=== PATIENT | female | born 1950 | race Two or more races ===

== ENCOUNTER 2016-11-12 05:51 | Inpatient (IN) | payer MEDICARE, OTHER ==
--- NOTE | 2016-11-10 16:17 | History and Physical Report ---
DATE OF ADMISSION: 11/12/2016 REASON FOR ADMISSION: Right colon adenocarcinoma, here to undergo right colectomy. HISTORY OF PRESENT ILLNESS: The patient is a very pleasant, 6 para 6, 66-year-old diabetic obese woman, with a history of arthritis, with a newly diagnosed ascending colon infiltrating adenocarcinoma. She has had some obstipation and constipation symptoms, no bleeding, and some mild intermittent abdominal pain and for that reason, underwent a colonoscopy and at that time it was found that she had an infiltrating adenocarcinoma of the ascending colon near the hepatic flexure, evidently the cecum was also seen and there was no obvious mass. The mass was sizeable. A CAT scan of the abdomen was done, which revealed normal findings except for some fatty liver changes, and the rest of the CT was normal except for evidence of a prior cholecystectomy. PAST MEDICAL HISTORY: No history of heart disease, ejection fraction is 55% on the 2D echo, no valve abnormalities, history of diabetes mellitus, history of arthritis, status post open cholecystectomy many years ago, history of appendectomy, history of hysterectomy, history of arthroscopy, history of colonoscopy. MEDICATIONS: Calcium carbonate 500 mg 1 p.o. b.i.d., vitamin D 50,000 units capsule once a week, multivitamins 1 a day, ibuprofen 1 p.o. t.i.d. p.r.n. joint pain, meloxicam 15 mg 1 p.o. daily, Anoro Ellipta 62.5 mcg and 25 mcg powder for inhalation once a day, and omeprazole 1 capsule p.o. daily. PHYSICAL EXAMINATION: VITAL SIGNS: Blood pressure was 130/70, pulse 76, temperature is 98.1 degrees, respirations 18, weight 181 pounds, height 63 inches, and BMI 32. HEENT: Pupils are equal, round, reactive to light and accommodation. Extraocular movements are intact. The mouth and throat are clear. NECK: Supple. No masses. Breasts: no masses, no adenopathy. LUNGS: Clear to auscultation. HEART: Rhythmic and regular. No murmurs. ABDOMEN: Soft and flat. Bowel sounds are normoactive. No tenderness, no rebound, no organomegaly, right upper quadrant oblique subcostal scar, no groin adenopathy or hernia. GENITALIA: Normal external female genitalia. Pelvic is deferred. RECTAL: Normal tone. No masses. Heme-negative stool. EXTREMITIES: Good range of motion, some arthritic changes, no deformity. Walks with some difficulty with a cane. LABORATORY VALUES: CBC and electrolytes are normal. Liver function tests are normal. Electrocardiogram is pending and a chest x-ray is pending. CAT scan reviewed with Dr. Whitman: no liver mets or adenopathy, ascending colon- hepatic flexure area slight narrowing with thickened colon wall, possible "apple core "lesion. Some mass effect in cecal region, but could be stool.([id number] went to cecum. ) PLAN: The patient is being admitted on 11/12/2016 to undergo a laparoscopic right colectomy, possible open. The patient understands that given her past surgeries there may be significant adhesions making a laparoscopic right colectomy more difficult or impossible, therefore she might require an open right hemicolectomy. The patient understands the indications, the risks, the benefits, the possible complications, possible infection, possible leak, possible abnormal bleeding, and she consents to the operation. All this was discussed at length with patient and daughter at [facility] and all questions, concerns were addressed and understood by patient and daughter. GI prep is in progress. Corey Harris M.D. : KENNY/at JOB#: [id number] CC: IGNACIO
[2016-11-12] VITALS (26 sets, daily range): BP systolic 109–159; BP diastolic 63–91
[~2016-11-12] VITALS: Ht 152.4 cm; Wt 81.6 kg
[~2016-11-12 05:51] MED LIST: ASPIR 8181 MG ORAL; BACLOFEN10 MG ORAL; GLIPIZIDE5 MG ORAL; HYDRALAZINE HCL25 M1 ORAL; LASIX20 M1 ORAL; METFORMIN HCL1000 M1 ORAL; OXYBUTYNIN CHLO10 MG PO; TRAMADOL HCL50 MG ORAL
--- NOTE | 2016-11-12 07:05 | Pre-Procedure Note/Attestation ---
Pre-Procedure Note/Attestation Complete Prior to Procedure Planned Procedure: right Procedure Narrative: laparoscopic right colectomy, possible open Indications for Procedure Pre-Operative Diagnosis: right colon carcinoma Attestation I attest that I discussed the nature of the procedure; its benefits; risks and complications; and alternatives (and the risks and benefits of such alternatives ), prior to the procedure, with the patient (or the patient's legal sales utility representative). I attest that, if there was a reasonable possibility of needing a blood transfusion, the patient (or the patient's legal sales utility representative) was given the [facility] standardized written summary, pursuant to the Subhash Nessa Blood Safety Act ([place] Health and Safety Code # 1645, as amended). I attest that I re-evaluated the patient just prior to the surgery and that there has been no change in the patient's H&P, except as documented below: ALEK WORTHY Nov 12, 2016 07:05
--- NOTE | 2016-11-12 07:06 | Anethesia Preoperative Eval ---
Anesthesia Pre-op PMH/ROS General Date of Evaluation: Nov 12, 2016 Anesthesiologist: Jose ASA Score: ASA 3 Mallampati Score Class I : Soft palate, uvula, fauces, pillars visible Class II: Soft palate, uvula, fauces visible Class III: Soft palate, base of uvula visible Class IV: Only hard plate visible Mallampati Classification: Class II Surgeon: Steven Diagnosis: Colorectal Cancer Surgical Procedure: Right laparoscopic colectomy Anesthesia History: none Family History: no anesthesia problems Allergies: Coded Allergies: No Known Allergies (Unverified , 11/11/16) Medications: see eMAR Past Medical History Cardiovascular: Denies: CAD, HTN, [place], arrhythmia, other, valve dz Pulmonary: Denies: COPD, SWEETIE, asthma, other Gastrointestinal/Genitourinary: Reports: GERD, other - colon cancer, Denies: CRI, ESRD Neurologic/Psychiatric: Denies: CVA, TIA, dementia, depression/anxiety, other Endocrine: Reports: DM, Denies: hypothyroidism, other, steroids HEENT: Denies: GAMBELL (L), GAMBELL (R), cataract (L), cataract (R), glaucoma, other Musculoskeletal/Integumentary: Reports: OA Other: obesity PSxH Narrative: open cholecystectomy, NENO/BSO, Bilateral knee arthroscopies Anesthesia Pre-op Phys. Exam Physician Exam Last Vital Signs Date Time Temp Pulse Resp B/P Pulse Ox O2 Delivery O2 Flow Rate FiO2 11/12/16 06:53 97.5 60 20 121/73 96 Room Air Constitutional: NAD Cardiovascular: RRR Respiratory: CTA Airway Exam Mallampati Score: Class II MO: limited ROM: limited Teeth: missing Dentures: lower, upper Anesthesia Pre-op A/P Labs see chart Studies Pre-op Studies: EKG - sr Risk Assessment & Plan Assessment: ASA III Plan: GA Status Change Before Surgery: No Pre-Antibiotics Drug: Ancef 2g Given Within 1 Hr of Incision: Yes Time Given: 07:45 REMA BROUSSARD M.D. Nov 12, 2016 07:06
[2016-11-12] MEDS ORDERED: Bupivacaine w/Epi 0.25% 30ml Vial INJ ONE ×2 (07:20→09:22)
[2016-11-12] MEDS ORDERED: LR 1000ml ONE (07:30)
[2016-11-12] MEDS ORDERED: Dexamethasone 4mg/ml vial ONE (07:30)
[2016-11-12] MEDS ORDERED: Lidocaine 1% MPF 10mg/ml 5ml ONE (07:30)
[2016-11-12] MEDS ORDERED: Propofol 10mg/ml 20ml IV ONE (07:30)
[2016-11-12] MEDS ORDERED: Sterile Water Irrig 1000ml IRRIG ONE (07:30)
[2016-11-12] MEDS ORDERED: Midazolam 2mg/2ml Inj ONE (07:30)
[2016-11-12] MEDS ORDERED: Zemuron 50mg/5ml Inj IV ONE (07:30)
[2016-11-12] MEDS ORDERED: fentaNYL 250mcg/5ml ONE (07:30)
[2016-11-12] MEDS ORDERED: NS Irrig 1000ml ONE (07:30)
[2016-11-12] MEDS ORDERED: LR 1000ml 1,000 ML IVLG SCH (07:57)
[2016-11-12] MEDS ORDERED: fentaNYL 100 mcg/2 mL IV PRN (08:00)
[2016-11-12] MEDS ORDERED: Metoclopramide 10mg/2ml Inj IVP PRN (08:00)
[2016-11-12] MEDS ORDERED: Ketorolac 30mg Inj IV PRN (08:00)
[2016-11-12] MEDS ORDERED: DiphenhydrAMINE 50mg/ml Inj IVP PRN (08:00)
--- NOTE | 2016-11-12 12:40 | Brief Operative Note ---
Immediate Post Operative Note Operative Note Pre-op Diagnosis: right colon carcinoma Procedure: laparoscopic right hemicolectomy Post-op Diagnosis: same as pre-op Surgeon: howard Anesthesiologist: claribel Anesthesia: general Specimen: yes - right colon Complications: none Condition: stable Estimated Blood Loss: volume - 250-300 cc Drains: none Implant(s) used?: No ALEK WORTHY Nov 12, 2016 12:40
--- NOTE | 2016-11-12 12:48 | Immediate Post-Op Evaluation ---
Immediate Post-Op Evalulation Immediate Post-Op Evalulation Procedure: Laparoscopic right colectomy Date of Evaluation: Nov 12, 2016 Time of Evaluation: 12:47 IV Fluids: 3L Blood Products: 0 Estimated Blood Loss: 300 Urinary Output: 150 Blood Pressure Systolic: 158 Blood Pressure Diastolic: 61 Pulse Rate: 109 Respiratory Rate: 16 O2 Sat by Pulse Oximetry: 100 Temperature (Fahrenheit): 97.5 Pain Score (1-10): 0 Nausea: No Vomiting: No Complications 0 Patient Status: awake, reacts, patent, none Hydration Status: adequate Drug: Ancef 2g Given Within 1 Hr of Incision: Yes Time Given: 07:45 REMA BROUSSARD M.D. Nov 12, 2016 12:48
[2016-11-12] MEDS: Hydromorphone 0.5mg/0.5ml inj IVP PRN ×3 (13:03→14:11)
[2016-11-12] MEDS ORDERED: Naloxone 0.4mg/ml Inj IVP PRN (13:15)
[2016-11-12] MEDS ORDERED: Rate Change PCA 1 Each MISC PRN (13:15)
[2016-11-12] MEDS: LORazepam Inj 2mg/ml 1ml IV PRN ×2 (13:32→14:15)
[2016-11-12] MEDS: PCA HYDROmorphone 1mg/ml 30 ML IV PRN (14:24)
[2016-11-12] MEDS: D5 1/2NS w/KCl 20mEq 1,000 ML IV SCH (16:27)
[2016-11-12] MEDS: cefOXitin Sod 1 GM in D5W 55 ML IV SCH ×2 (16:28→20:56)
[2016-11-12] MEDS: NovoLOG Insulin Flexpen SUBQ SCH ×2 (16:52→21:00)
[2016-11-12] MEDS: DiphenhydrAMINE 50mg/ml Inj IVP PRN (17:39)
[2016-11-12] MEDS: PCA shift volume MISC SCH (19:00)
[2016-11-12 20:06] LABS: MEAN CORPUSCULAR HEMOGLOBIN 31.5 PG (27.0-31.0); MEAN CORPUSCULAR HGB CONC 34.5 G/DL (32.0-36.0); MEAN CORPUSCULAR VOLUME 91 FL (80-99); MEAN PLATELET VOLUME 6.4 FL (6.5-10.1); PLATELET COUNT 297 K/UL (150-450); RED BLOOD COUNT 3.18 M/UL (4.20-5.40); RED CELL DISTRIBUTION WIDTH 12.2 % (11.6-14.8)
[2016-11-12 20:09] LABS: WHITE BLOOD COUNT 22.3 K/UL (4.8-10.8)
[2016-11-12 20:36] LABS: ANION GAP 15 (5-15); CALCIUM 8.5 mg/dL (8.6-10.2); CARBON DIOXIDE 24 mEQ/L (20-30); CHLORIDE 99 mEQ/L (98-107); CREATININE 0.9 mg/dL (0.5-0.9); GLOMERULAR FILTRATION RATE > 60 mL/min (>60); HEMOLYSIS 5; POTASSIUM 4.8 mEQ/L (3.4-4.9); SODIUM 138 mEQ/L (135-145)
[2016-11-12 20:51] LABS: ANISOCYTOSIS 1+; BAND NEUTROPHILS % (MANUAL) 5 % (0-8); BASOPHILS % (MANUAL) 0 % (0-2); EOSINOPHILS % (MANUAL) 0 % (0-3); HYPOCHROMASIA 1+; LYMPHOCYTES % (MANUAL) 3 % (20-45); NEUTROPHILS % (MANUAL) 86 % (45-75); PLATELET ESTIMATE ADEQUATE; PLATELET MORPHOLOGY NORMAL; TOTAL CELLS COUNTED 100
[2016-11-12] MEDS: Heparin 5000 units/ml inj SUBQ SCH (22:15)
[2016-11-13] VITALS (7 sets, daily range): BP systolic 95–119; BP diastolic 48–62
[2016-11-13] MEDS: 1/2NS w/KCl 20mEq 1000ml 1,000 ML IV SCH ×2 (02:00→23:00)
[2016-11-13] MEDS: cefOXitin Sod 1 GM in D5W 55 ML IV SCH (02:06)
[2016-11-13] MEDS: D5 1/2NS w/KCl 20mEq 1,000 ML IV SCH (02:06)
[2016-11-13] MEDS: NovoLOG Insulin Flexpen SUBQ SCH ×4 (06:21→21:03)
[2016-11-13] MEDS: Heparin 5000 units/ml inj SUBQ SCH ×3 (06:22→21:08)
[2016-11-13] MEDS: DiphenhydrAMINE 50mg/ml Inj IVP PRN (06:29)
[2016-11-13] MEDS: PCA shift volume MISC SCH ×3 (07:28→22:06)
[2016-11-13 07:35] LABS: BASOPHILS % (AUTO) 0.4 % (0.0-2.0); EOSINOPHILS % (AUTO) 0.1 % (0.0-3.0); LYMPHOCYTES % (AUTO) 19.2 % (20.0-45.0); MEAN CORPUSCULAR HEMOGLOBIN 29.9 PG (27.0-31.0); MEAN CORPUSCULAR HGB CONC 31.8 G/DL (32.0-36.0); MEAN CORPUSCULAR VOLUME 94 FL (80-99); MEAN PLATELET VOLUME 6.5 FL (6.5-10.1); MONOCYTES % (AUTO) 10.4 % (1.0-10.0); NEUTROPHILS % (AUTO) 69.9 % (45.0-75.0); PLATELET COUNT 292 K/UL (150-450); RED BLOOD COUNT 2.95 M/UL (4.20-5.40); RED CELL DISTRIBUTION WIDTH 12.9 % (11.6-14.8); WHITE BLOOD COUNT 17.4 K/UL (4.8-10.8)
[2016-11-13 07:46] LABS: CALCIUM 7.8 mg/dL (8.6-10.2); CREATININE 1.1 mg/dL (0.5-0.9); GLOMERULAR FILTRATION RATE 49.4 mL/min (>60); MAGNESIUM 1.4 mg/dL (1.7-2.5); PHOSPHORUS 3.8 mg/dL (2.5-4.8); POTASSIUM 4.7 mEQ/L (3.4-4.9)
--- NOTE | 2016-11-13 10:27 | General Surgery Progress Note ---
General Surgery-Progress Note Subjective Day of Surgery: POD #1 Additional Comments Patient seen and examined at bedside. doing okay. Complaining of abdominal pain and some mild itching in right arm. no nausea or emesis. no fever or chills. no flatus or BM. otherwise comfortable. Objective Last 24 Hour Vital Signs Date Time Temp Pulse Resp B/P Pulse Ox O2 Delivery O2 Flow Rate FiO2 11/13/16 07:56 99.0 97 19 112/62 99 Room Air 11/13/16 04:13 99.0 58 19 117/48 96 Nasal Cannula 11/13/16 04:00 20 11/13/16 00:32 97.4 110 18 95/55 96 Nasal Cannula 11/13/16 00:00 20 11/12/16 20:56 99.3 145 19 112/76 97 Nasal Cannula 11/12/16 20:00 20 11/12/16 17:34 Nasal Cannula 3.0 32 11/12/16 17:15 97.3 137 17 114/73 97 Nasal Cannula 11/12/16 16:53 97.3 138 18 118/73 97 Nasal Cannula 11/12/16 16:45 97.6 146 16 119/81 97 Nasal Cannula 3.0 11/12/16 16:15 97.5 153 15 109/75 96 Nasal Cannula 3.0 11/12/16 16:00 97.2 146 13 129/85 95 Nasal Cannula 3.0 11/12/16 15:56 20 11/12/16 15:45 97.0 144 14 119/81 95 Nasal Cannula 3.0 11/12/16 15:30 97.0 137 14 141/91 94 Nasal Cannula 3.0 11/12/16 15:30 20 11/12/16 15:23 20 11/12/16 15:15 97.9 113 13 126/85 98 Nasal Cannula 3.0 11/12/16 14:56 20 11/12/16 14:47 97.9 11/12/16 14:46 97.9 11/12/16 14:41 20 11/12/16 14:40 97.9 113 20 126/85 98 Nasal Cannula 3.0 11/12/16 14:29 97.9 117 20 132/82 100 Nasal Cannula 3.0 11/12/16 14:24 20 11/12/16 14:15 104 20 119/63 100 Nasal Cannula 3.0 11/12/16 14:11 120 20 149/72 100 Nasal Cannula 3.0 11/12/16 14:05 104 20 140/77 100 Simple Mask 8.0 11/12/16 13:50 97.5 11/12/16 13:50 104 20 125/69 100 Simple Mask 8.0 11/12/16 13:35 104 20 119/63 100 Simple Mask 8.0 11/12/16 13:32 115 20 140/79 100 Simple Mask 8.0 11/12/16 13:28 115 20 140/79 100 Simple Mask 8.0 11/12/16 13:24 105 20 144/76 100 Simple Mask 8.0 11/12/16 13:10 113 20 136/80 100 Simple Mask 8.0 11/12/16 13:03 114 20 143/81 100 Simple Mask 8.0 11/12/16 13:00 114 20 143/81 100 Simple Mask 8.0 11/12/16 12:52 114 20 131/80 100 Simple Mask 8.0 11/12/16 12:48 109 16 100 11/12/16 12:47 114 20 130/86 100 Simple Mask 8.0 11/12/16 12:42 97.5 114 20 159/74 100 Simple Mask 8.0 I&O Intake and Output 11/12/16 11/13/16 19:00 07:00 Intake Total 4200 ml 1200 ml Output Total 700 ml 250 ml Balance 3500 ml 950 ml Intake IV Total 4200 ml 1200 ml Output Urine Total 400 ml 250 ml Estimated Blood Loss 300 ml # Voids 1 Dressing: dry Wound: clean Drains: none Cardiovascular: RSR Respiratory: clear Abdomen: soft, absent bowel sounds, other - soft, inciscional tenderness, no distention, no bowel sounds, wounds c/d/i. Extremities: edema Laboratory Tests Test 11/12/16 19:30 11/13/16 05:10 White Blood Count 22.3 K/UL (4.8-10.8) *H 17.4 K/UL (4.8-10.8) H Red Blood Count 3.18 M/UL (4.20-5.40) L 2.95 M/UL (4.20-5.40) L Hemoglobin 10.0 G/DL (12.0-16.0) L 8.8 G/DL (12.0-16.0) L Hematocrit 29.0 % (37.0-47.0) L 27.7 % (37.0-47.0) L Mean Corpuscular Volume 91 FL (80-99) 94 FL (80-99) Mean Corpuscular Hemoglobin 31.5 PG (27.0-31.0) H 29.9 PG (27.0-31.0) Mean Corpuscular Hemoglobin Concent 34.5 G/DL (32.0-36.0) 31.8 G/DL (32.0-36.0) L Red Cell Distribution Width 12.2 % (11.6-14.8) 12.9 % (11.6-14.8) Platelet Count 297 K/UL (150-450) 292 K/UL (150-450) Mean Platelet Volume 6.4 FL (6.5-10.1) L 6.5 FL (6.5-10.1) Neutrophils (%) (Auto) % (45.0-75.0) 69.9 % (45.0-75.0) Lymphocytes (%) (Auto) % (20.0-45.0) 19.2 % (20.0-45.0) L Monocytes (%) (Auto) % (1.0-10.0) 10.4 % (1.0-10.0) H Eosinophils (%) (Auto) % (0.0-3.0) 0.1 % (0.0-3.0) Basophils (%) (Auto) % (0.0-2.0) 0.4 % (0.0-2.0) Differential Total Cells Counted 100 Neutrophils % (Manual) 86 % (45-75) H Lymphocytes % (Manual) 3 % (20-45) L Monocytes % (Manual) 6 % (1-10) Eosinophils % (Manual) 0 % (0-3) Basophils % (Manual) 0 % (0-2) Band Neutrophils 5 % (0-8) Platelet Estimate Adequate Platelet Morphology Normal Hypochromasia 1+ Anisocytosis 1+ Sodium Level 138 mEQ/L (135-145) 138 mEQ/L (135-145) Potassium Level 4.8 mEQ/L (3.4-4.9) 4.7 mEQ/L (3.4-4.9) Chloride Level 99 mEQ/L (98-107) 98 mEQ/L (98-107) Carbon Dioxide Level 24 mEQ/L (20-30) 26 mEQ/L (20-30) Anion Gap 15 (5-15) 14 (5-15) Blood Urea Nitrogen 13 mg/dL (7-23) 14 mg/dL (7-23) Creatinine 0.9 mg/dL (0.5-0.9) 1.1 mg/dL (0.5-0.9) H Estimat Glomerular Filtration Rate > 60 mL/min (>60) 49.4 mL/min (>60) Glucose Level 299 mg/dL (74-106) H 214 mg/dL (74-106) H Calcium Level 8.5 mg/dL (8.6-10.2) L 7.8 mg/dL (8.6-10.2) L Ionized Calcium (Measured) Pending Phosphorus Level 3.8 mg/dL (2.5-4.8) Magnesium Level 1.4 mg/dL (1.7-2.5) L Plan Problems: (1) Malignant neoplasm of right colon Assessment & Plan: POD #1 s/p lap assisted right colectomy. Afebrile, HD stable, recovering. leukocytosis improved. H/H mild drop but likely dilutional and stable. Chemistry okay. Pain as anticipated given surgery. -NPO with IV fluids. okay for ice chips and meds -Keep pagan in place until ambulatory. (hopefully can remove tomorrow) -Ambulate and OOB -Incentive Spirometry 10x/hr while awake -SCD's -Rx as written. Rolando Mc Nov 13, 2016 10:27
[2016-11-13] MEDS ORDERED: D5 1/2NS w/KCl 20mEq 1,000 ML IV SCH (11:00)
[2016-11-13 12:59] LABS: IONIZED CALCIUM 1.01 mmol/L (1.10-1.35)
[2016-11-13] MEDS ORDERED: 1/2NS w/KCl 20mEq 1000ml 1,000 ML IV SCH (13:00)
--- NOTE | 2016-11-13 13:11 | Cardiology Report ---
APPROVED REPORT EKG Measurement Heart [id number] Sinus tachycardia Nonspecific T wave abnormality Abnormal ECG
[2016-11-13] MEDS: DuoNeb 0.5-3(2.5)mg/3ml neb HHN SCH ×2 (13:16→18:28)
[2016-11-13] MEDS: PCA HYDROmorphone 1mg/ml 30 ML IV PRN (14:42)
--- NOTE | 2016-11-13 17:03 | 48 Hour Post Anesthesia Eval ---
Post Anesthesia Evaluation Procedure: Laparoscopic right colectomy Date of Evaluation: Nov 13, 2016 Time of Evaluation: 17:02 Blood Pressure Systolic: 128 0: 58 Pulse Rate: 86 Respiratory Rate: 22 Temperature (Fahrenheit): 97.6 O2 Sat by Pulse Oximetry: 98 Airway: patent Nausea: No Vomiting: No Pain Intensity: 2 Hydration Status: adequate Cardiopulmonary Status: stable Mental Status/LOC: patient returned to baseline Follow-up Care/Observations: n/a Post-Anesthesia Complications: none Follow-up care needed: N/A JAY ELLIS M.D. Nov 13, 2016 17:03
[2016-11-13] MEDS ORDERED: Vancomycin 1gm in D5W 275ml IVPB SCH (18:00)
[2016-11-13 19:13] LABS: APPEARANCE,URINE CLEAR; KETONES,URINE NEGATIVE (NEGATIVE); LEUKOCYTE ESTERASE ,URINE 1+ (NEGATIVE); NITRITE,URINE NEGATIVE (NEGATIVE); PH,URINE 6 (4.5-8.0); PROTEIN,URINE NEGATIVE (NEGATIVE); UROBILINOGEN,URINE NORMAL MG/DL (0.0-1.0)
[2016-11-13 19:20] LABS: BACTERIA,URINE MODERATE /HPF; SQUAMOUS EPITHELIAL CELL,UR MODERATE /LPF (NONE/OCC)
[2016-11-13] MEDS ORDERED: Levalbuterol Inh UD 1.25mg/0.5ml HHN PRN ×2 (19:45→23:45)
[2016-11-13] MEDS: Piperacillin/Tazobactam 3.375 GM in D5W 110 ML IVPB SCH ×2 (21:07→22:17)
--- NOTE | 2016-11-13 21:58 | Operative Note - Dictated ---
DATE OF OPERATION: 11/12/2016 SURGEON: Corey Harris M.D. FIELD ARTILLERY BASIC: Rolando Mc M.D. ANESTHESIOLOGIST: Severo Garcia M.D. ANESTHESIA: General endotracheal tube. PREOPERATIVE DIAGNOSIS: Right colon adenocarcinoma. POSTOPERATIVE DIAGNOSIS: Right colon adenocarcinoma. NAME OF OPERATION: Laparoscopic right hemicolectomy with extensive lysis of adhesions. FINDINGS AND INDICATIONS: The patient is a 66-year-old Latin female, who has a history of having recently had a colonoscopy, which showed an ascending colon junction with the hepatic flexure adenocarcinoma, ulcerated mass with some narrowing of the lumen. There was some history of bleeding, but no anemia. No significant pain or obstructive symptoms. After thoroughly evaluating the patient with a CAT scan, which did not reveal any obvious mass, adenopathy or liver metastasis and after thorough explanation with the patient and the family as to the indications, risks, benefits, possible complications, including infection, leak, possible need for reoperation from a laparoscopic colectomy and/or open colectomy, they understood and consented to the operation. At the time of surgery, the laparoscopy did reveal very extensive adhesions of omentum from a prior cholecystectomy (open) many years ago and a total abdominal hysterectomy through a low midline incision. This had to be lysed extensively and after a thorough search, we were able to find an inked area on the proximal transverse colon. The multiple adhesions were lysed from the omentum to the anterior abdominal wall and from the transverse colon to the liver edge. In the right lower quadrant and pelvis, the distal ileum had lots of adhesions to the lateral pelvic wall and the lateral abdominal wall. Having lysed all of this, the segment of resection was delineated and we were able to control the vessels without any problems with both energy device as well as a hemoclips with excellent results. The colectomy was then done and the specimen was removed through the wound protector uneventfully and anastomosis extracorporeally created as described. DESCRIPTION OF PROCEDURE: With the patient lying in the supine position on the operating table, under general endotracheal anesthesia with the entire abdominal region prepped and draped in usual sterile fashion with Betadine, with a Benitez catheter in place and after a complete time-out, a left paraumbilical 10 millimeter trocar was placed and pneumoperitoneum established. A 10 mm trocar in the left upper quadrant just below the costal margin, and a 5 mm trocar in the low midline, were placed under direct visualization. Having established the pneumoperitoneum and beginning the adhesiolysis by blunt and sharp means obtaining hemostasis with cautery or with the ligasure device, careful dissection was undertaken of the prior adhesions, which was somewhat difficult because of the abnormal anatomy that had been caused by the severity of the adhesions. Once, we mobilized the entire omentum and flipped it cephalad, then we concentrated on the right lower quadrant mobilizing the distal ileum from multiple adhesions, the ureter could be visualized and left intact and then white line of Toldt delineated, some adhesions were also mobilized in that area. A medial to lateral dissection was undertaken on the mesentery of the right colon, isolating the ileo colic vessels by scoring the peritoneum and then individually, identifying the artery, which was double clipped and transected as well as the vein, which was double clipped and transected and then the energy device was used to divide the mesentery up to the duodenum, which was visualized and left intact. The hepatic flexure was then mobilized by blunt and sharp means obtaining hemostasis with the ligature device, and having done so, the entire specimen was freed up from hepatic adhesions , and the proximal transverse colon was mobilized to just past the midline. We now had full mobility of the specimen from distal ileum to mid transverse colon. We then deflated the CO2 and opened the upper left epigastric wound transversely for approximately 8 cm to the right, the wound protector was then placed and the specimen delivered through here. The proximal and distal margins of resection were then transected with a ALEJANDRO staple device, and then the mesentery was divided ligating the middle colic vessels with 2-0 silk sutures and then the rest of them in the mesentery taken with the energy device. The anti-mesenteric margins of distal ileum was then brought up to the anti-mesenteric border of the transverse colon, approximated and a small opening was made into both and the ALEJANDRO staple device was used to create the ileo colostomy. The open end was closed with a TA 60 staple device. Hemostasis was double checked, which was adequate. The abdominal contents were then placed back into the cavity and the abdomen was irrigated. The epigastric wound was then closed with a continuous loop #1 PDS suture, subcutaneous tissues with 3-0 Vicryl suture and the skin with deb. The abdomen was again insufflated with CO2 to be able to check for hemostasis and made sure there was no axial rotation of the bowel, with an excellent anastomosis and good hemostasis. At this point, again we deflated the CO2 and then the wounds were closed with 0 Vicryl fascial sutures on the 10 mm trochar and 5-0 Vicryl subcutaneous sutures on the small ones with stainless steel clips on the skin. The patient tolerated the procedure well. Estimated blood loss was less than 300 mL. Sponge and needle counts were correct. She went to the recovery room in stable condition. Corey Harris M.D. DR: HEIKE JOB#: [id number] CC: IGNACIO
[2016-11-13] MEDS ORDERED: Naloxone 0.4mg/ml Inj IVP PRN (22:30)
--- NOTE | 2016-11-13 22:38 | Progress Note ---
DATE: 11/13/2016 SUBJECTIVE: Postop day #1. The patient is alert, but per family members more somnolent than usual. She has been using minimal RADIATION OFFICER injections per nursing staff. She has had some abdominal pain. She also has had some low-grade fevers. OBJECTIVE: VITAL SIGNS: Blood pressure 112/62, pulse, 97, respirations 19, temperature 99, and room air oxygen 99%. NECK: Supple. LUNGS: Clear. CARDIAC: Regular. Normal S1, S2. ABDOMEN: Soft. Slightly distended. Mildly tender. No edema. NEUROLOGIC: No focal neurologic deficits. LABORATORY DATA: White count 17.4 and hemoglobin 8.8. Potassium 4.7, BUN 14, creatinine 1.1, glucose 214, and magnesium 1.4. IMPRESSION: 1. Postoperative colectomy. 2. Probable atelectasis. 3. Hypomagnesemia. 4. Somnolent, likely due to anesthesia and pain medication. 5. Leukocytosis postoperatively with no signs of acute infection. 6. Type 2 diabetes mellitus with hyperglycemia. PLAN: 1. Discontinue dextrose and IV fluids. Continue maintenance IV fluids. 2. Deep venous thrombosis prophylaxis. 3. Limit pain medications for somnolence. 4. Discontinue Benadryl. 5. Discontinue Ambien. 6. IV magnesium. 7. Follow up lab studies. 8. Respiratory hygiene ordered including incentive spirometer and bronchodilators. Miguel Pelletier M.D. DR: JOSE RAUL JOB#: [id number] CC:
[2016-11-14 00:27] VITALS: BP 105/59
[2016-11-14 04:00] VITALS: BP 94/55
[2016-11-14] MEDS: Piperacillin/Tazobactam 3.375 GM in D5W 110 ML IVPB SCH ×3 (05:15→21:09)
[2016-11-14] MEDS: Heparin 5000 units/ml inj SUBQ SCH ×3 (05:22→21:11)
[2016-11-14] MEDS: NovoLOG Insulin Flexpen SUBQ SCH ×4 (06:42→22:21)
[2016-11-14] MEDS ORDERED: PCA shift volume MISC SCH (07:00)
[2016-11-14 08:00] VITALS: BP 116/45
[2016-11-14 08:01] LABS: ALANINE AMINOTRANSFERASE 27 U/L (3-33); ALBUMIN/GLOBULIN RATIO 0.9 (1.0-2.7); ANION GAP 13 (5-15); ASPARTATE AMINO TRANSFERASE 32 U/L (5-40); CALCIUM 7.8 mg/dL (8.6-10.2); CARBON DIOXIDE 25 mEQ/L (20-30); CHLORIDE 99 mEQ/L (98-107); CREATININE 0.8 mg/dL (0.5-0.9); GLOMERULAR FILTRATION RATE > 60 mL/min (>60); HEMOLYSIS 0; POTASSIUM 4.7 mEQ/L (3.4-4.9); SODIUM 137 mEQ/L (135-145); TOTAL PROTEIN 6.1 g/dL (6.6-8.7)
[2016-11-14 08:12] LABS: MEAN CORPUSCULAR HEMOGLOBIN 29.8 PG (27.0-31.0); MEAN CORPUSCULAR HGB CONC 31.4 G/DL (32.0-36.0); MEAN CORPUSCULAR VOLUME 95 FL (80-99); MEAN PLATELET VOLUME 6.5 FL (6.5-10.1); PLATELET COUNT 245 K/UL (150-450); RED BLOOD COUNT 2.61 M/UL (4.20-5.40); RED CELL DISTRIBUTION WIDTH 12.7 % (11.6-14.8); WHITE BLOOD COUNT 20.6 K/UL (4.8-10.8)
--- NOTE | 2016-11-14 08:52 | General Progress Note ---
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 febrile and tachycardic last night. transferred to [facility]. pt is intermittently confused. per staff sometime pushes [employer] button when not in pain. garvey cultures. on multiple iv abx. Objective Last 24 Hour Vital Signs Date Time Temp Pulse Resp B/P Pulse Ox O2 Delivery O2 Flow Rate FiO2 11/14/16 08:00 101.8 118 18 116/45 Nasal Cannula 2.0 95 11/14/16 04:00 20 11/14/16 04:00 107 11/14/16 04:00 99.7 109 20 94/55 96 Nasal Cannula 2.0 32 11/14/16 00:27 100.9 116 20 105/59 96 Nasal Cannula 2.0 11/14/16 00:00 20 11/14/16 00:00 120 11/13/16 22:00 101.2 133 20 113/57 96 Nasal Cannula 2.0 11/13/16 20:00 18 11/13/16 19:00 101.1 132 19 119/51 95 Nasal Cannula 3.0 11/13/16 18:29 Nasal Cannula 11/13/16 18:28 135 20 95 Nasal Cannula 3.0 32 11/13/16 18:27 135 20 Nasal Cannula 3.0 32 11/13/16 18:27 95 Nasal Cannula 3.0 32 11/13/16 18:26 Room Air 3.0 32 11/13/16 17:03 86 22 98 11/13/16 16:00 102.0 120 17 113/50 97 Room Air 11/13/16 16:00 18 11/13/16 15:12 99.3 11/13/16 14:44 18 11/13/16 14:43 18 11/13/16 13:25 114 18 98 Nasal Cannula 3.0 32 11/13/16 13:16 117 18 96 Nasal Cannula 3.0 32 11/13/16 13:16 32 11/13/16 12:11 99.3 121 19 118/58 97 Room Air 11/13/16 12:00 18 11/13/16 10:08 99.0 Intake and Output 11/13/16 11/14/16 19:00 07:00 Intake Total 100 ml 675 ml Output Total 500 ml 700 ml Balance -400 ml -25 ml Intake IV Total 100 ml 675 ml Output Urine Total 500 ml 700 ml Laboratory Tests 11/13/16 18:00: Urine Color Pale yellow, Urine Appearance Clear, Urine pH 6, Urine Specific [place] 1.015, Urine Protein Negative, Urine Glucose (UA) Negative, Urine Ketones Negative, Urine Occult Blood 1+H, Urine Nitrite Negative, Urine Bilirubin Negative, Urine Urobilinogen Normal, Urine Leukocyte Esterase 1+H, Urine RBC 5-10H, Urine WBC 2-4, Urine Squamous Epithelial Cells ModerateH, Urine Bacteria ModerateH 11/14/16 05:50: White Blood Count 20.6H, Red Blood Count 2.61L, Hemoglobin 7.8L, Hematocrit 24.7L, Mean Corpuscular Volume 95, Mean Corpuscular Hemoglobin 29.8, Mean Corpuscular Hemoglobin Concent 31.4L, Red Cell Distribution Width 12.7, Platelet Count 245, Mean Platelet Volume 6.5, Neutrophils (%) (Auto) , Lymphocytes (%) (Auto) , Monocytes (%) (Auto) , Eosinophils (%) (Auto) , Basophils (%) (Auto) , Neutrophils % (Manual) [Pending], Lymphocytes % (Manual) [Pending], Platelet Estimate [Pending], Platelet Morphology [Pending], Sodium Level 137, Potassium Level 4.7, Chloride Level 99, Carbon Dioxide Level 25, Anion Gap 13, Blood Urea Nitrogen 8, Creatinine 0.8, Estimat Glomerular Filtration Rate > 60, Glucose Level 218H, Calcium Level 7.8L, Total Bilirubin 0.4, Aspartate Amino Transf (AST/SGOT) 32, Alanine Aminotransferase (ALT/SGPT) 27, Alkaline Phosphatase 111H, Total Protein 6.1L, Albumin 3.0L, Globulin 3.1, Albumin/Globulin Ratio 0.9L Height (Feet): 5 Height (Inches): 0.00 Weight (Pounds): 180 General Appearance: WD/WN, alert Neck: supple Cardiovascular: regular rhythm Respiratory/Chest: lungs clear Abdomen: soft, absent bowel sounds Edema: no edema noted Arm (L), no edema noted Arm (R), no edema noted Leg (L), no edema noted Leg (R), no edema noted Pedal (L), no edema noted Pedal (R), no edema noted Generalized JACK LOPEZ Nov 14, 2016 08:52
[2016-11-14] MEDS: 1/2NS w/KCl 20mEq 1000ml 1,000 ML IV SCH ×2 (08:53→17:45)
[2016-11-14] MEDS ORDERED: Rate Change PCA 1 Each MISC PRN (09:00)
--- NOTE | 2016-11-14 09:43 | Diagnostic Imaging Report ---
Indication: COUGH Technique: One view of the chest Comparison: none Findings: Interstitial disease is seen throughout the left lung, possibly with some superimposed alveolar opacities. Atelectatic changes are seen in the right mid and lower lung. There is some consolidation at the right lung base. The heart is mildly enlarged. The pleural spaces are probably clear Impression: Bilateral left greater than right mostly interstitial parenchymal disease, as described Right perihilar and basilar atelectasis Borderline cardiomegaly
--- NOTE | 2016-11-14 10:59 | General Surgery Progress Note ---
General Surgery-Progress Note Subjective Symptoms: pain same Objective Last 24 Hour Vital Signs Date Time Temp Pulse Resp B/P Pulse Ox O2 Delivery O2 Flow Rate FiO2 11/14/16 09:12 20 11/14/16 08:44 99.6 11/14/16 08:00 101.8 118 18 116/45 Nasal Cannula 2.0 95 11/14/16 08:00 20 11/14/16 04:00 20 11/14/16 04:00 107 11/14/16 04:00 99.7 109 20 94/55 96 Nasal Cannula 2.0 32 11/14/16 00:27 100.9 116 20 105/59 96 Nasal Cannula 2.0 11/14/16 00:00 20 11/14/16 00:00 120 11/13/16 22:00 101.2 133 20 113/57 96 Nasal Cannula 2.0 11/13/16 20:00 18 11/13/16 19:00 101.1 132 19 119/51 95 Nasal Cannula 3.0 11/13/16 18:29 Nasal Cannula 11/13/16 18:28 135 20 95 Nasal Cannula 3.0 32 11/13/16 18:27 135 20 Nasal Cannula 3.0 32 11/13/16 18:27 95 Nasal Cannula 3.0 32 11/13/16 18:26 Room Air 3.0 32 11/13/16 17:03 86 22 98 11/13/16 16:00 102.0 120 17 113/50 97 Room Air 11/13/16 16:00 18 11/13/16 15:12 99.3 11/13/16 14:44 18 11/13/16 14:43 18 11/13/16 13:25 114 18 98 Nasal Cannula 3.0 32 11/13/16 13:16 117 18 96 Nasal Cannula 3.0 32 11/13/16 13:16 32 11/13/16 12:11 99.3 121 19 118/58 97 Room Air 11/13/16 12:00 18 I&O Intake and Output 11/13/16 11/14/16 18:59 06:59 Intake Total 200 ml 675 ml Output Total 500 ml 700 ml Balance -300 ml -25 ml Intake IV Total 200 ml 675 ml Output Urine Total 500 ml 700 ml Dressing: dry Wound: clean Drains: none Cardiovascular: RSR Respiratory: clear Abdomen: soft Extremities: no edema Laboratory Tests Test 11/13/16 18:00 11/14/16 05:50 Urine Color Pale yellow Urine Appearance Clear Urine pH 6 (4.5-8.0) Urine Specific [place] 1.015 (1.005-1.035) Urine Protein Negative (NEGATIVE) Urine Glucose (UA) Negative (NEGATIVE) Urine Ketones Negative (NEGATIVE) Urine Occult Blood 1+ (NEGATIVE) H Urine Nitrite Negative (NEGATIVE) Urine Bilirubin Negative (NEGATIVE) Urine Urobilinogen Normal MG/DL (0.0-1.0) Urine Leukocyte Esterase 1+ (NEGATIVE) H Urine RBC 5-10 /HPF (0 - 2) H Urine WBC 2-4 /HPF (0 - 2) Urine Squamous Epithelial Cells Moderate /LPF (NONE/OCC) H Urine Bacteria Moderate /HPF (NONE) H White Blood Count 20.6 K/UL (4.8-10.8) H Red Blood Count 2.61 M/UL (4.20-5.40) L Hemoglobin 7.8 G/DL (12.0-16.0) L Hematocrit 24.7 % (37.0-47.0) L Mean Corpuscular Volume 95 FL (80-99) Mean Corpuscular Hemoglobin 29.8 PG (27.0-31.0) Mean Corpuscular Hemoglobin Concent 31.4 G/DL (32.0-36.0) L Red Cell Distribution Width 12.7 % (11.6-14.8) Platelet Count 245 K/UL (150-450) Mean Platelet Volume 6.5 FL (6.5-10.1) Neutrophils (%) (Auto) % (45.0-75.0) Lymphocytes (%) (Auto) % (20.0-45.0) Monocytes (%) (Auto) % (1.0-10.0) Eosinophils (%) (Auto) % (0.0-3.0) Basophils (%) (Auto) % (0.0-2.0) Neutrophils % (Manual) Pending Lymphocytes % (Manual) Pending Platelet Estimate Pending Platelet Morphology Pending Sodium Level 137 mEQ/L (135-145) Potassium Level 4.7 mEQ/L (3.4-4.9) Chloride Level 99 mEQ/L (98-107) Carbon Dioxide Level 25 mEQ/L (20-30) Anion Gap 13 (5-15) Blood Urea Nitrogen 8 mg/dL (7-23) Creatinine 0.8 mg/dL (0.5-0.9) Estimat Glomerular Filtration Rate > 60 mL/min (>60) Glucose Level 218 mg/dL (74-106) H Calcium Level 7.8 mg/dL (8.6-10.2) L Total Bilirubin 0.4 mg/dL (0.0-1.2) Aspartate Amino Transf (AST/SGOT) 32 U/L (5-40) Alanine Aminotransferase (ALT/SGPT) 27 U/L (3-33) Alkaline Phosphatase 111 U/L (35-104) H Total Protein 6.1 g/dL (6.6-8.7) L Albumin 3.0 g/dL (3.5-5.2) L Globulin 3.1 g/dL Albumin/Globulin Ratio 0.9 (1.0-2.7) L Assessment Additional Comments Pt has atelectasis from immobility, abdomen is soft. Leukocytosis also caused from poor inspiratory effort. Plan Additional Comments We will get her up in a chair, will d/c Benitez catheter. Niranjan Bowser MD Nov 14, 2016 10:59
[2016-11-14 11:50] LABS: TOTAL CELLS COUNTED 100
[2016-11-14 11:51] LABS: BAND NEUTROPHILS % (MANUAL) 0 % (0-8); BASOPHILS % (MANUAL) 0 % (0-2); EOSINOPHILS % (MANUAL) 0 % (0-3); HYPOCHROMASIA 1+; LYMPHOCYTES % (MANUAL) 17 % (20-45); NEUTROPHILS % (MANUAL) 75 % (45-75); PLATELET ESTIMATE ADEQUATE; PLATELET MORPHOLOGY NORMAL
[2016-11-14 11:52] LABS: MICROCYTES OCCASIONAL
[2016-11-14 12:00] VITALS: BP 91/47
[2016-11-14] MEDS: HYDROmorphone 1mg/ml Carpuject IVP PRN ×3 (12:27→21:11)
[2016-11-14] MEDS ORDERED: PCA HYDROmorphone 1mg/ml 30 ML IV PRN (13:15)
[2016-11-14 16:00] VITALS: BP 106/54
[2016-11-14] MEDS ORDERED: NS 275ml ONE (16:11)
[2016-11-14] MEDS ORDERED: Tubing IV Secondary IV ONE (16:11)
[2016-11-14 17:20] LABS: APPEARANCE,URINE SLIGHTLY CLOUDY; KETONES,URINE 1+ (NEGATIVE); LEUKOCYTE ESTERASE ,URINE NEGATIVE (NEGATIVE); NITRITE,URINE NEGATIVE (NEGATIVE); PH,URINE 6 (4.5-8.0); PROTEIN,URINE 1+ (NEGATIVE); UROBILINOGEN,URINE NORMAL MG/DL (0.0-1.0)
--- NOTE | 2016-11-14 17:28 | Consultation ---
DATE OF CONSULTATION: 11/14/2016 INFECTIOUS DISEASE CONSULTATION REFERRING PHYSICIAN: Pablo Charles M.D. REASON FOR CONSULTATION: Fever. HISTORY OF PRESENTING ILLNESS: This is a 66-year-old lady with history of diabetes, arthritis, cholecystectomy, and appendectomy, who came in with newly diagnosed ascending colon adenocarcinoma. She underwent laparoscopic right hemicolectomy with extensive lysis of adhesions and postoperatively has had fevers and an Infectious Diseases consultation has been obtained for antibiotics. PAST MEDICAL HISTORY: 1. History of diabetes. 2. History of colon cancer. 3. History of cholecystectomy. 4. Arthritis. 5. Appendectomy. 6. Hysterectomy. 7. History of arthroscopy. MEDICATIONS: As an inpatient, she is on IV vancomycin, Dilaudid, Zosyn, insulin 19, subcutaneous heparin, Zofran, Tylenol, Xopenex, Dilaudid, and Narcan. ALLERGIES: No known drug allergies. SOCIAL HISTORY: She used to be a smoker. She does not smoke anymore. No history of alcohol or drug use. FAMILY HISTORY: Noncontributory. REVIEW OF SYSTEMS: Respiratory: She had fever and chills. No cough. No shortness of breath or chest pain. Cardiac: No chest pain. No palpitations. No dizziness. No syncope. Gastrointestinal: No nausea. No vomiting. No abdominal pain or diarrhea. PHYSICAL EXAMINATION: VITAL SIGNS: Temperature all 99.6 degrees, T-max of 102 degrees, pulse of 118, respiratory rate 20, blood pressure 116/45, and O2 saturation of 96%. HEENT: Pupils equally reactive to light and accommodation. Mouth appears clean without thrush. NECK: Supple. No adenopathy. No JVD. CARDIOVASCULAR: Regular rate and rhythm. No murmurs. LUNGS: Clear to auscultation bilaterally. No crackles. No wheezes. ABDOMEN: Soft and nontender. No organomegaly. EXTREMITIES: No cyanosis, no clubbing, and no edema. LABORATORY AND DIAGNOSTIC DATA: White count of 20.6, hemoglobin 7.8, hematocrit 24.7, MCV 95, and platelet count of 245,000. Sodium 137, potassium 4.7, chloride 99, bicarbonate 25, BUN 8, creatinine 0.8 and glucose 218. Calcium 7.8. Total bilirubin 0.4. AST 32, ALT 27 and alkaline phosphatase 111. Total protein 6.1. Albumin of 3. Urinalysis showing 2-4 white cells. Urine cultures are negative from 11/13/2016. Chest x-ray on 11/13/2016 showing right perihilar and basilar atelectasis. ASSESSMENT: 1. This is a 66-year-old lady with history of diabetes and colon cancer status post laparoscopic right hemicolectomy now with postoperative fevers, could be concerned regarding urinary tract infection. 2. No signs of pneumonia currently. 3. Leukocytosis, could be postoperative. PLAN: 1. Agree with IV vancomycin and Zosyn. 2. We will follow up cultures and adjust antibiotics accordingly. I would like to thank, Dr. Charles, for this consultation. Jack Wan M.D. DR: JASON JOB#: [id number] CC: Roge Craven M.D.
[2016-11-14 17:31] LABS: RBC,URINE 0-2 /HPF (0 - 2); SQUAMOUS EPITHELIAL CELL,UR MANY /LPF (NONE/OCC); WBC,URINE 0-2 /HPF (0 - 2)
[2016-11-14] MEDS: Vancomycin 1 GM in D5W 275 ML IVPB SCH (17:45)
[2016-11-14 20:00] VITALS: BP 109/52
[2016-11-15] VITALS: BP 124/57
[2016-11-15] MEDS: HYDROmorphone 1mg/ml Carpuject IVP PRN ×2 (01:22→05:29)
[2016-11-15 04:00] VITALS: BP 118/57
[2016-11-15] MEDS: 1/2NS w/KCl 20mEq 1000ml 1,000 ML IV SCH ×2 (04:30→14:26)
[2016-11-15] MEDS: Piperacillin/Tazobactam 3.375 GM in D5W 110 ML IVPB SCH ×3 (05:19→22:35)
[2016-11-15] MEDS: NovoLOG Insulin Flexpen SUBQ SCH ×4 (06:30→21:00)
[2016-11-15] MEDS: Heparin 5000 units/ml inj SUBQ SCH ×3 (06:42→22:00)
[2016-11-15 08:00] VITALS: BP 121/73
[2016-11-15 08:46] LABS: MEAN CORPUSCULAR HEMOGLOBIN 30.1 PG (27.0-31.0); MEAN CORPUSCULAR HGB CONC 31.7 G/DL (32.0-36.0); MEAN CORPUSCULAR VOLUME 95 FL (80-99); MEAN PLATELET VOLUME 6.5 FL (6.5-10.1); PLATELET COUNT 267 K/UL (150-450); RED BLOOD COUNT 2.54 M/UL (4.20-5.40); RED CELL DISTRIBUTION WIDTH 12.8 % (11.6-14.8); WHITE BLOOD COUNT 17.6 K/UL (4.8-10.8)
--- NOTE | 2016-11-15 08:46 | General Progress Note ---
Assessment/Plan Problem List: (1) Sepsis ICD Codes: A41.9 - Sepsis, unspecified organism SNOMED: 23277199 (2) Anemia due to acute blood loss ICD Codes: D62 - Acute posthemorrhagic anemia SNOMED: 731612785 (3) SVT (supraventricular tachycardia) ICD Codes: I47.1 - Supraventricular tachycardia SNOMED: 4462483 (4) Malignant neoplasm of right colon ICD Codes: C18.2 - Malignant neoplasm of ascending colon SNOMED: 464281614 Status: stable, progressing Assessment/Plan IVF IV abx follow up cultures ID input appreciated follow up cxr follow labs- may need transfusion consider dc pagan pos per surgery pain rx Subjective ROS Limited/Unobtainable: No Constitutional: Reports: malaise, weakness HEENT: Reports: no symptoms Cardiovascular: Reports: no symptoms Respiratory: Reports: no symptoms Gastrointestinal/Abdominal: Reports: abdominal pain Genitourinary: Reports: no symptoms Neurologic/Psychiatric: Reports: no symptoms Endocrine: Reports: no symptoms Hematologic/Lymphatic: Reports: anemia Allergies: Coded Allergies: No Known Allergies (Unverified , 11/11/16) All Systems: reviewed and negative except above Subjective hr better controlled. fevers better(low grade temp last night) or chills. no bm yet. Objective Last 24 Hour Vital Signs Date Time Temp Pulse Resp B/P Pulse Ox O2 Delivery O2 Flow Rate FiO2 11/15/16 04:42 97 11/15/16 04:00 98.2 95 20 118/57 97 Nasal Cannula 2.0 11/15/16 00:00 114 11/15/16 00:00 98.4 101 20 124/57 96 Nasal Cannula 2.0 11/14/16 20:00 92 11/14/16 20:00 100.2 89 18 109/52 98 2.0 11/14/16 20:00 Nasal Cannula 2.0 28 11/14/16 19:59 98 Nasal Cannula 2.0 28 11/14/16 16:00 99.1 91 18 106/54 Nasal Cannula 2.0 99 11/14/16 16:00 93 11/14/16 12:00 113 11/14/16 12:00 98.1 90 18 91/47 Nasal Cannula 2.0 98 11/14/16 09:12 20 Intake and Output 11/14/16 11/15/16 19:00 07:00 Intake Total 1328.708 ml 1100 ml Balance 1328.708 ml 1100 ml Intake IV Total 1328.708 ml 1100 ml # Voids 3 Laboratory Tests 11/14/16 16:23: Urine Color Pale yellow, Urine Appearance Slightly cloudy, Urine pH 6, Urine Specific [place] 1.015, Urine Protein 1+H, Urine Glucose (UA) Negative, Urine Ketones 1+H, Urine Occult Blood 1+H, Urine Nitrite Negative, Urine Bilirubin Negative, Urine Urobilinogen Normal, Urine Leukocyte Esterase Negative, Urine RBC 0-2, Urine WBC 0-2, Urine Squamous Epithelial Cells ManyH, Urine Bacteria None 11/15/16 07:20: White Blood Count [Pending], Red Blood Count [Pending], Hemoglobin [Pending], Hematocrit [Pending], Mean Corpuscular Volume [Pending], Mean Corpuscular Hemoglobin [Pending], Mean Corpuscular Hemoglobin Concent [Pending], Red Cell Distribution Width [Pending], Platelet Count [Pending], Mean Platelet Volume [ Pending], Neutrophils (%) (Auto) [Pending], Lymphocytes (%) (Auto) [Pending], Monocytes (%) (Auto) [Pending], Eosinophils (%) (Auto) [Pending], Basophils (%) (Auto) [Pending] Height (Feet): 5 Height (Inches): 0.00 Weight (Pounds): 180 General Appearance: WD/WN, alert Neck: supple Cardiovascular: regular rhythm Respiratory/Chest: lungs clear Abdomen: normal bowel sounds, soft, no mass, decreased bowel sounds Edema: no edema noted Arm (L), no edema noted Arm (R), no edema noted Leg (L), no edema noted Leg (R), no edema noted Pedal (L), no edema noted Pedal (R), no edema noted Generalized JACK LOPEZ Nov 15, 2016 08:46
[2016-11-15] MEDS: Pantoprazole Inj IVP SCH (09:37)
[2016-11-15 10:56] LABS: BASOPHILS % (MANUAL) 2 % (0-2); EOSINOPHILS % (MANUAL) 1 % (0-3); LYMPHOCYTES % (MANUAL) 15 % (20-45); NEUTROPHILS % (MANUAL) 76 % (45-75); TOTAL CELLS COUNTED 100
[2016-11-15 11:03] LABS: ANISOCYTOSIS 1+; BAND NEUTROPHILS % (MANUAL) 0 % (0-8); PLATELET ESTIMATE ADEQUATE; PLATELET MORPHOLOGY NORMAL
[2016-11-15 12:00] VITALS: BP 90/46
--- NOTE | 2016-11-15 12:17 | Infectious Diseases Prog Note ---
Assessment/Plan Assessment/Plan A. Bacteremia Post operative fever Colon cancer s/p R hemicolectomy Anemia Obesity P; Continue Vancomycin & Zosyn Will f/u cultures Subjective ROS Limited/Unobtainable: No Constitutional: Reports: fever, other - T jpg=[id number] Respiratory: Reports: no symptoms Cardiovascular: Reports: no symptoms Gastrointestinal/Abdominal: Reports: no symptoms Genitourinary: Reports: no symptoms Allergies: Coded Allergies: No Known Allergies (Unverified , 11/11/16) Objective Vital Signs Last 24 Hour Vital Signs Date Time Temp Pulse Resp B/P Pulse Ox O2 Delivery O2 Flow Rate FiO2 11/15/16 08:00 98.8 87 19 121/73 Nasal Cannula 2.0 99 11/15/16 07:35 Nasal Cannula 2.0 28 11/15/16 07:35 95 Nasal Cannula 2.0 28 11/15/16 04:42 97 11/15/16 04:00 98.2 95 20 118/57 97 Nasal Cannula 2.0 11/15/16 00:00 114 11/15/16 00:00 98.4 101 20 124/57 96 Nasal Cannula 2.0 11/14/16 20:00 92 11/14/16 20:00 100.2 89 18 109/52 98 2.0 11/14/16 20:00 Nasal Cannula 2.0 28 11/14/16 19:59 98 Nasal Cannula 2.0 28 11/14/16 16:00 99.1 91 18 106/54 Nasal Cannula 2.0 99 11/14/16 16:00 93 Height (Feet): 5 Height (Inches): 0.00 Weight (Pounds): 180 General Appearance: no acute distress HEENT: mucous membranes moist Respiratory/Chest: lungs clear Cardiovascular: normal rate Abdomen: soft, non tender Extremities: no edema Neurologic/Psychiatric: alert, oriented x 3, responsive Microbiology Date/Time Source Procedure Growth Status 11/13/16 17:30 Blood Blood Culture - Preliminary Gram Positive Cocci Resulted 11/13/16 17:28 Blood Blood Culture - Preliminary NO GROWTH AFTER 24 HOURS Resulted 11/13/16 18:00 Urine,Clean Catch Urine Culture - Preliminary NO GROWTH AFTER 24 HOURS Resulted 11/13/16 18:00 Indwelling Cath Urine Culture - Final NO GROWTH AFTER 48 HOURS Complete Laboratory Tests Test 11/14/16 16:11/15/16 07:20 Urine Color Pale yellow Urine Appearance Slightly cloudy Urine pH 6 (4.5-8.0) Urine Specific [place] 1.015 (1.005-1.035) Urine Protein 1+ (NEGATIVE) H Urine Glucose (UA) Negative (NEGATIVE) Urine Ketones 1+ (NEGATIVE) H Urine Occult Blood 1+ (NEGATIVE) H Urine Nitrite Negative (NEGATIVE) Urine Bilirubin Negative (NEGATIVE) Urine Urobilinogen Normal MG/DL (0.0-1.0) Urine Leukocyte Esterase Negative (NEGATIVE) Urine RBC 0-2 /HPF (0 - 2) Urine WBC 0-2 /HPF (0 - 2) Urine Squamous Epithelial Cells Many /LPF (NONE/OCC) H Urine Bacteria None /HPF (NONE) White Blood Count 17.6 K/UL (4.8-10.8) H Red Blood Count 2.54 M/UL (4.20-5.40) L Hemoglobin 7.7 G/DL (12.0-16.0) L Hematocrit 24.1 % (37.0-47.0) L Mean Corpuscular Volume 95 FL (80-99) Mean Corpuscular Hemoglobin 30.1 PG (27.0-31.0) Mean Corpuscular Hemoglobin Concent 31.7 G/DL (32.0-36.0) L Red Cell Distribution Width 12.8 % (11.6-14.8) Platelet Count 267 K/UL (150-450) Mean Platelet Volume 6.5 FL (6.5-10.1) Neutrophils (%) (Auto) % (45.0-75.0) Lymphocytes (%) (Auto) % (20.0-45.0) Monocytes (%) (Auto) % (1.0-10.0) Eosinophils (%) (Auto) % (0.0-3.0) Basophils (%) (Auto) % (0.0-2.0) Differential Total Cells Counted 100 Neutrophils % (Manual) 76 % (45-75) H Lymphocytes % (Manual) 15 % (20-45) L Monocytes % (Manual) 6 % (1-10) Eosinophils % (Manual) 1 % (0-3) Basophils % (Manual) 2 % (0-2) Band Neutrophils 0 % (0-8) Platelet Estimate Adequate Platelet Morphology Normal Anisocytosis 1+ Current Medications Medications (Trade) Dose Ordered Sig/Mg Route PRN Reason Start Time Stop Time Status Last Admin Dose Admin Acetaminophen (Tylenol) 650 mg Q4H PRN ORAL Mild Pain/Temp > 100.5 11/14/16 01:45 12/14/16 01:44 11/14/16 07:45 Dextrose (Dextrose 50%) STAT PRN IV Hypoglycemia 11/14/16 13:15 12/14/16 13:14 Heparin Sodium (Porcine) (Heparin 5000 units/ml) 5,000 units EVERY 8 HOURS SUBQ 11/14/16 06:00 12/14/16 05:59 11/15/16 06:42 Hydromorphone HCl (Dilaudid) 0.5 mg Q4H PRN IVP Mild Pain (Pain Scale 1-3) 11/14/16 09:00 11/21/16 08:59 11/15/16 01:22 Hydromorphone HCl (Dilaudid) 1 mg Q4H PRN IVP Moderate Pain (Pain Scale 4-6) 11/14/16 15:30 11/21/16 15:29 11/15/16 05:29 Hydromorphone HCl (Dilaudid) 2 mg Q4H PRN IVP Severe Pain (Pain Scale 7-10) 11/14/16 15:30 11/21/16 15:29 11/15/16 09:36 Insulin Aspart (NovoLOG) BEFORE MEALS AND HS SUBQ 11/14/16 06:30 12/14/16 06:29 11/14/16 06:42 Levalbuterol HCl (Xopenex) 0.63 mg Q4H PRN HHN Shortness of Breath 11/13/16 23:45 11/18/16 23:44 Naloxone HCl (Narcan) 0.1 mg Q1M PRN IVP RR<10/min OR SBP<90 mmHg 11/13/16 22:30 11/15/16 22:29 Ondansetron HCl (Zofran) 4 mg Q6H PRN IVP Nausea & Vomiting 11/14/16 04:00 12/14/16 03:59 11/15/16 05:29 Pantoprazole (Protonix) 40 mg DAILY IVP 11/15/16 09:00 12/15/16 08:59 11/15/16 09:37 Piperacillin Sod/ Tazobactam Sod 3.375 gm/Dextrose 110 ml @ 27.5 mls/hr EVERY 8 HOURS IVPB 11/14/16 06:00 11/19/16 05:59 11/15/16 05:19 Sodium 1,000 ml @ 100 mls/hr Q10H IV 11/13/16 22:30 12/13/16 22:29 11/15/16 04:30 Sodium Chloride 1,000 ml @ 0 mls/hr Q0M PRN IV WHEN POST OP IVF D/C'D 11/13/16 22:30 12/13/16 22:29 Vancomycin HCl (Vanco rx to dose) 1 ea DAILY PRN MISC Per rx protocol 11/14/16 09:00 12/14/16 08:59 Vancomycin HCl/ Dextrose (Vancomycin/D5W) 275 ml @ 183.708 mls/hr Q24H IVPB 11/14/16 18:00 11/19/16 17:59 11/14/16 17:45 OLMAN HATFIELD Nov 15, 2016 12:17
--- NOTE | 2016-11-15 13:23 | General Surgery Progress Note ---
General Surgery-Progress Note Subjective Symptoms: improved Objective Last 24 Hour Vital Signs Date Time Temp Pulse Resp B/P Pulse Ox O2 Delivery O2 Flow Rate FiO2 11/15/16 12:00 97.6 82 18 90/46 96 Room Air 11/15/16 08:00 98.8 87 19 121/73 Nasal Cannula 2.0 99 11/15/16 07:35 Nasal Cannula 2.0 28 11/15/16 07:35 95 Nasal Cannula 2.0 28 11/15/16 04:42 97 11/15/16 04:00 98.2 95 20 118/57 97 Nasal Cannula 2.0 11/15/16 00:00 114 11/15/16 00:00 98.4 101 20 124/57 96 Nasal Cannula 2.0 11/14/16 20:00 92 11/14/16 20:00 100.2 89 18 109/52 98 2.0 11/14/16 20:00 Nasal Cannula 2.0 28 11/14/16 19:59 98 Nasal Cannula 2.0 28 11/14/16 16:00 99.1 91 18 106/54 Nasal Cannula 2.0 99 11/14/16 16:00 93 I&O Intake and Output 11/14/16 11/15/16 19:00 07:00 Intake Total 1328.708 ml 1100 ml Balance 1328.708 ml 1100 ml Intake IV Total 1328.708 ml 1100 ml # Voids 3 Dressing: dry Wound: clean Drains: none Cardiovascular: RSR Respiratory: clear Abdomen: soft Extremities: no edema Laboratory Tests Test 11/14/16 16:23 11/15/16 07:20 Urine Color Pale yellow Urine Appearance Slightly cloudy Urine pH 6 (4.5-8.0) Urine Specific [place] 1.015 (1.005-1.035) Urine Protein 1+ (NEGATIVE) H Urine Glucose (UA) Negative (NEGATIVE) Urine Ketones 1+ (NEGATIVE) H Urine Occult Blood 1+ (NEGATIVE) H Urine Nitrite Negative (NEGATIVE) Urine Bilirubin Negative (NEGATIVE) Urine Urobilinogen Normal MG/DL (0.0-1.0) Urine Leukocyte Esterase Negative (NEGATIVE) Urine RBC 0-2 /HPF (0 - 2) Urine WBC 0-2 /HPF (0 - 2) Urine Squamous Epithelial Cells Many /LPF (NONE/OCC) H Urine Bacteria None /HPF (NONE) White Blood Count 17.6 K/UL (4.8-10.8) H Red Blood Count 2.54 M/UL (4.20-5.40) L Hemoglobin 7.7 G/DL (12.0-16.0) L Hematocrit 24.1 % (37.0-47.0) L Mean Corpuscular Volume 95 FL (80-99) Mean Corpuscular Hemoglobin 30.1 PG (27.0-31.0) Mean Corpuscular Hemoglobin Concent 31.7 G/DL (32.0-36.0) L Red Cell Distribution Width 12.8 % (11.6-14.8) Platelet Count 267 K/UL (150-450) Mean Platelet Volume 6.5 FL (6.5-10.1) Neutrophils (%) (Auto) % (45.0-75.0) Lymphocytes (%) (Auto) % (20.0-45.0) Monocytes (%) (Auto) % (1.0-10.0) Eosinophils (%) (Auto) % (0.0-3.0) Basophils (%) (Auto) % (0.0-2.0) Differential Total Cells Counted 100 Neutrophils % (Manual) 76 % (45-75) H Lymphocytes % (Manual) 15 % (20-45) L Monocytes % (Manual) 6 % (1-10) Eosinophils % (Manual) 1 % (0-3) Basophils % (Manual) 2 % (0-2) Band Neutrophils 0 % (0-8) Platelet Estimate Adequate Platelet Morphology Normal Anisocytosis 1+ Additional Comments Hgb stable at 7.7, WBC improved to 17.6. She was able to void without the Benitez. She is hungry, denies nausea or vomiting today. Plan Additional Comments We will start clear liquids today. Niranjan Bowser MD Nov 15, 2016 13:23
[2016-11-15 16:00] VITALS: BP 95/39
[2016-11-15] MEDS: Vancomycin 1 GM in D5W 275 ML IVPB SCH (18:24)
[2016-11-15 20:00] VITALS: BP 133/67
[2016-11-16] MEDS: 1/2NS w/KCl 20mEq 1000ml 1,000 ML IV SCH ×3 (00:11→20:30)
[2016-11-16 04:00] VITALS: BP 130/70
--- NOTE | 2016-11-16 05:58 | Progress Note ---
DATE: 11/15/2016 CARDIOLOGY PROGRESS NOTE SUBJECTIVE: The patient feels better. She is on antibiotics intravenously. She is defervesced. T-max is 100.2 last night. Blood pressure down to 90/46 early this afternoon, heart rate 82 to 114, and respiratory rate 18 to 20. No nausea or vomiting. No shortness of breath. The patient is more alert, but still in bed most of the day. OBJECTIVE: LUNGS: Diminished breath sounds. HEART: Regular rhythm and rate. Normal S1 and S2. ABDOMEN: Soft. No bowel movement. Mild tenderness. EXTREMITIES: No edema. LABORATORY DATA: White count 17.6 and hemoglobin 7.7. Potassium 4.7, BUN 8, and creatinine 0.8. Albumin is 3.0. Urinalysis with no white cells. IMPRESSION: 1. Status post hemicolectomy for colon malignancy. 2. Postoperative atelectasis. 3. Postoperative leukocytosis. 4. Postoperative fevers. 5. Postoperative anemia, recovering. 6. Postoperative ileus. 7. Diabetes mellitus type 2. 8. Secondary sinus tachycardia. PLAN: 1. Clear liquids started by surgeon. 2. Antibiotics per Infectious Disease oracle ebs consultant. 3. DVT prophylaxis. 4. Iron supplement. 5. Consider transfusion. 6. Insulin coverage by sliding scale. Miguel Pelletier M.D. DR: JOSE RAUL JOB#: [id number] CC:
[2016-11-16] MEDS: Heparin 5000 units/ml inj SUBQ SCH ×3 (06:00→21:31)
[2016-11-16] MEDS: Piperacillin/Tazobactam 3.375 GM in D5W 110 ML IVPB SCH ×3 (06:10→21:26)
[2016-11-16] MEDS: NovoLOG Insulin Flexpen SUBQ SCH ×4 (06:30→21:30)
[2016-11-16 08:00] VITALS: BP 151/74
[2016-11-16] MEDS: Pantoprazole Inj IVP SCH (09:19)
--- NOTE | 2016-11-16 09:20 | Infectious Diseases Prog Note ---
Assessment/Plan Assessment/Plan A. Bacteremia with CoANS likely contamination Post operative fever Colon cancer s/p R hemicolectomy Anemia Obesity P; discontinue Vancomycin , continue Zosyn Will f/u cultures Subjective ROS Limited/Unobtainable: No Constitutional: Reports: fever, other - T owb=596.4 Respiratory: Reports: no symptoms Gastrointestinal/Abdominal: Reports: other - mild surgical site pain, started on liquid diet Genitourinary: Reports: no symptoms Allergies: Coded Allergies: No Known Allergies (Unverified , 11/11/16) Objective Vital Signs Last 24 Hour Vital Signs Date Time Temp Pulse Resp B/P Pulse Ox O2 Delivery O2 Flow Rate FiO2 11/16/16 08:00 100.4 103 20 151/74 98 Room Air 11/16/16 04:00 98.9 110 18 130/70 93 Room Air 11/16/16 04:00 113 11/16/16 00:00 101 11/15/16 20:00 101 11/15/16 20:00 99.0 96 18 133/67 93 Room Air 11/15/16 19:30 Nasal Cannula 2.0 28 11/15/16 19:30 94 Nasal Cannula 2.0 28 11/15/16 16:00 97.0 96 18 95/39 93 Room Air 11/15/16 16:00 104 11/15/16 12:00 96 11/15/16 12:00 97.6 82 18 90/46 96 Room Air Height (Feet): 5 Height (Inches): 0.00 Weight (Pounds): 180 General Appearance: no acute distress HEENT: mucous membranes moist Respiratory/Chest: lungs clear Cardiovascular: normal rate Abdomen: soft, non tender, other - surgical site clean Extremities: no edema Neurologic/Psychiatric: alert, oriented x 3, responsive Microbiology Date/Time Source Procedure Growth Status 11/13/16 17:30 Blood Blood Culture - Preliminary Staphylococcus Sp Coag Neg Resulted 11/13/16 17:28 Blood Blood Culture - Preliminary NO GROWTH AFTER 48 HOURS Resulted 11/13/16 18:00 Urine,Clean Catch Urine Culture - Preliminary NO GROWTH AFTER 24 HOURS Resulted 11/13/16 18:00 Indwelling Cath Urine Culture - Final NO GROWTH AFTER 48 HOURS Complete Current Medications Medications (Trade) Dose Ordered Sig/Mg Route PRN Reason Start Time Stop Time Status Last Admin Dose Admin Acetaminophen (Tylenol) 650 mg Q4H PRN ORAL Mild Pain/Temp > 100.5 11/14/16 01:45 12/14/16 01:44 11/14/16 07:45 Dextrose (Dextrose 50%) STAT PRN IV Hypoglycemia 11/14/16 13:15 12/14/16 13:14 Heparin Sodium (Porcine) (Heparin 5000 units/ml) 5,000 units EVERY 8 HOURS SUBQ 11/14/16 06:00 12/14/16 05:59 11/15/16 14:25 Hydromorphone HCl (Dilaudid) 0.5 mg Q4H PRN IVP Mild Pain (Pain Scale 1-3) 11/14/16 09:00 11/21/16 08:59 11/15/16 01:22 Hydromorphone HCl (Dilaudid) 1 mg Q4H PRN IVP Moderate Pain (Pain Scale 4-6) 11/14/16 15:30 11/21/16 15:29 11/15/16 05:29 Hydromorphone HCl (Dilaudid) 2 mg Q4H PRN IVP Severe Pain (Pain Scale 7-10) 11/14/16 15:30 11/21/16 15:29 11/15/16 09:36 Insulin Aspart (NovoLOG) BEFORE MEALS AND HS SUBQ 11/14/16 06:30 12/14/16 06:29 11/14/16 06:42 Levalbuterol HCl (Xopenex) 0.63 mg Q4H PRN HHN Shortness of Breath 11/13/16 23:45 11/18/16 23:44 Ondansetron HCl (Zofran) 4 mg Q6H PRN IVP Nausea & Vomiting 11/14/16 04:00 12/14/16 03:59 11/15/16 05:29 Pantoprazole (Protonix) 40 mg DAILY IVP 11/15/16 09:00 12/15/16 08:59 11/15/16 09:37 Piperacillin Sod/ Tazobactam Sod 3.375 gm/Dextrose 110 ml @ 27.5 mls/hr EVERY 8 HOURS IVPB 11/14/16 06:00 11/19/16 05:59 11/16/16 06:10 Sodium 1,000 ml @ 100 mls/hr Q10H IV 11/13/16 22:30 12/13/16 22:29 11/16/16 00:11 Sodium Chloride 1,000 ml @ 0 mls/hr Q0M PRN IV WHEN POST OP IVF D/C'D 11/13/16 22:30 12/13/16 22:29 Vancomycin HCl (Vanco rx to dose) 1 ea DAILY PRN MISC Per rx protocol 11/14/16 09:00 12/14/16 08:59 Vancomycin HCl/ Dextrose (Vancomycin/D5W) 275 ml @ 183.708 mls/hr Q24H IVPB 11/14/16 18:00 11/19/16 17:59 11/15/16 18:24 OLMAN HATFIELD November 16, 2016 09:20
[2016-11-16] MEDS ORDERED: Norco 7.5mg/325mg tab ORAL PRN (11:30)
--- NOTE | 2016-11-16 11:34 | General Surgery Progress Note ---
General Surgery-Progress Note Subjective Procedure Performed laparoscopic right hemicolectomy Chief Complaint: slightly better, no n/v. No BM or flatus Symptoms: improved Additional Comments pain decreased, but still significant. Some hallucinations with pain Rx Objective Last 24 Hour Vital Signs Date Time Temp Pulse Resp B/P Pulse Ox O2 Delivery O2 Flow Rate FiO2 11/16/16 08:00 104 11/16/16 08:00 100.4 103 20 151/74 98 Room Air 11/16/16 07:45 Room Air 11/16/16 07:44 98 Room Air 21 11/16/16 04:00 98.9 110 18 130/70 93 Room Air 11/16/16 04:00 113 11/16/16 00:00 101 11/15/16 20:00 101 11/15/16 20:00 99.0 96 18 133/67 93 Room Air 11/15/16 19:30 Nasal Cannula 2.0 28 11/15/16 19:30 94 Nasal Cannula 2.0 28 11/15/16 16:00 97.0 96 18 95/39 93 Room Air 11/15/16 16:00 104 11/15/16 12:00 96 11/15/16 12:00 97.6 82 18 90/46 96 Room Air I&O Intake and Output 11/15/16 11/16/16 19:00 07:00 Intake Total 1310.0 ml 1555.0 ml Balance 1310.0 ml 1555.0 ml IV Total 1310.0 ml 1555.0 ml Wound: clean Drains: none Cardiovascular: RSR Respiratory: clear Abdomen: soft, distended - 1-2+ Extremities: no edema Additional Comments Stable s/p laparoscopic right hemicolectomy, ileus resolving, atelectasis better with less fever and better inspiration. Assessment Additional Comments PO pain meds, abd xrays to see bowel ? distention? Full liquids. If all well, home Wed or ALEK WORTHY November 16, 2016 11:34
[2016-11-16 12:02] VITALS: BP 106/41
--- NOTE | 2016-11-16 13:57 | Diagnostic Imaging Report ---
Indication: Abdominal distention Technique: Supine view of the abdomen Comparison: none Findings: Prominent gas-filled nondilated colon is noted. Gas outlines one or more diverticula. There are prominent gas-filled small bowel loops as well. There is a surgical anastomotic staple line seen in the midabdomen to the right of midline. There are skin deb and surgical clips. Impression: Nonspecific prominence 2 gas-filled large and small bowel, may reflect mild postoperative ileus. No definite acute process Postsurgical changes as described
[2016-11-16] MEDS ORDERED: Hydromorphone 0.5mg/0.5ml inj IVP PRN (14:00)
--- NOTE | 2016-11-16 14:19 | General Progress Note ---
Assessment/Plan Problem List: (1) Sepsis ICD Codes: A41.9 - Sepsis, unspecified organism SNOMED: 28157599 (2) Anemia due to acute blood loss ICD Codes: D62 - Acute posthemorrhagic anemia SNOMED: 291039868 (3) SVT (supraventricular tachycardia) ICD Codes: I47.1 - Supraventricular tachycardia SNOMED: 6960026 (4) Malignant neoplasm of right colon ICD Codes: C18.2 - Malignant neoplasm of ascending colon SNOMED: 033842075 Status: stable Assessment/Plan IVF IV abx follow up cultures ID input appreciated follow up cxr follow labs- may need transfusion consider dc pagan pos per surgery pain rx Subjective ROS Limited/Unobtainable: No Constitutional: Reports: malaise, weakness HEENT: Reports: no symptoms Cardiovascular: Reports: no symptoms Respiratory: Reports: no symptoms Gastrointestinal/Abdominal: Reports: abdominal pain Genitourinary: Reports: no symptoms Neurologic/Psychiatric: Reports: anxiety Endocrine: Reports: no symptoms Hematologic/Lymphatic: Reports: anemia Allergies: Coded Allergies: No Known Allergies (Unverified , 11/11/16) All Systems: reviewed and negative except above Subjective hr better controlled. fevers better. no bms or gas. some hallucinations Objective Last 24 Hour Vital Signs Date Time Temp Pulse Resp B/P Pulse Ox O2 Delivery O2 Flow Rate FiO2 11/16/16 12:02 98.4 103 19 106/41 98 Room Air 11/16/16 12:00 91 11/16/16 08:00 104 11/16/16 08:00 100.4 103 20 151/74 98 Room Air 11/16/16 07:45 Room Air 11/16/16 07:44 98 Room Air 21 11/16/16 04:00 98.9 110 18 130/70 93 Room Air 11/16/16 04:00 113 11/16/16 00:00 101 11/15/16 20:00 101 11/15/16 20:00 99.0 96 18 133/67 93 Room Air 11/15/16 19:30 Nasal Cannula 2.0 28 11/15/16 19:30 94 Nasal Cannula 2.0 28 11/15/16 16:00 97.0 96 18 95/39 93 Room Air 11/15/16 16:00 104 Intake and Output 11/15/16 11/16/16 19:00 07:00 Intake Total 1310.0 ml 1555.0 ml Balance 1310.0 ml 1555.0 ml IV Total 1310.0 ml 1555.0 ml Height (Feet): 5 Height (Inches): 0.00 Weight (Pounds): 180 Objective General Appearance: WD/WN, alert Neck: supple Cardiovascular: regular rhythm Respiratory/Chest: lungs clear Abdomen: normal bowel sounds, soft, no mass, decreased bowel sounds Edema: no edema noted Arm (L), no edema noted Arm (R), no edema noted Leg (L), no edema noted Leg (R), no edema noted Pedal (L), no edema noted Pedal (R), no edema noted Generalized JACK LOPEZ November 16, 2016 14:19
[2016-11-16 16:13] VITALS: BP 118/63
[2016-11-16] MEDS: Norco 7.5mg/325mg tab ORAL PRN ×2 (18:21→23:01)
[2016-11-16 20:00] VITALS: BP 134/59
[2016-11-17] VITALS: BP 124/56
[2016-11-17 04:00] VITALS: BP 113/62
--- NOTE | 2016-11-17 04:38 | Progress Note ---
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 She had a rapid heart rate that has improved. She also was hypotensive yesterday and has stabilized T-max 100.4, blood pressure 151/74, heart rate 103, respiratory rate 20, and saturating 98% on room air. Pain is decreasing. She still has episodes of hallucinations. She has not yet passed any gas and has no bowel movement. OBJECTIVE: LUNGS: Diminished breath sounds. HEART: Regular rhythm and rate. Normal S1, S2. ABDOMEN: Soft and slightly distended. Tender in the right lower quadrant. No guarding. Trace dependent edema. Urine cultures are negative. IMPRESSION: 1. Postoperative right hemicolectomy. 2. Postoperative atelectasis. 3. Anemia secondary to sinus tachycardia. 4. Recurring fevers. 5. Narcotic analgesic associated delirium. PLAN: 1. Maintain adequate hydration. 2. Taper off narcotic analgesics. 3. Empiric antibiotics. 4. Respiratory hygiene. 5. Recheck laboratory studies. 6. Immobilized. 7. Await recovery of bowel function and advance diet per surgery. Miguel Pelletier M.D. DR: LUIS/jose JOB#: [id number] CC:
[2016-11-17] MEDS: Piperacillin/Tazobactam 3.375 GM in D5W 110 ML IVPB SCH ×3 (05:40→22:00)
[2016-11-17] MEDS: Heparin 5000 units/ml inj SUBQ SCH ×3 (05:43→22:00)
[2016-11-17] MEDS: 1/2NS w/KCl 20mEq 1000ml 1,000 ML IV SCH ×3 (05:43→23:05)
[2016-11-17] MEDS: NovoLOG Insulin Flexpen SUBQ SCH ×4 (06:30→21:00)
[2016-11-17 07:39] VITALS: BP 127/70
[2016-11-17 10:00] LABS: MEAN CORPUSCULAR HEMOGLOBIN 29.6 PG (27.0-31.0); MEAN CORPUSCULAR HGB CONC 32.6 G/DL (32.0-36.0); MEAN CORPUSCULAR VOLUME 91 FL (80-99); PLATELET COUNT 314 K/UL (150-450); RED BLOOD COUNT 2.54 M/UL (4.20-5.40); RED CELL DISTRIBUTION WIDTH 12.1 % (11.6-14.8); WHITE BLOOD COUNT 13.5 K/UL (4.8-10.8)
[2016-11-17] MEDS: Pantoprazole Inj IVP SCH (10:12)
[2016-11-17 10:21] LABS: ANION GAP 10 (5-15); CALCIUM 8.2 mg/dL (8.6-10.2); CARBON DIOXIDE 30 mEQ/L (20-30); CHLORIDE 100 mEQ/L (98-107); CREATININE 0.6 mg/dL (0.5-0.9); GLOMERULAR FILTRATION RATE > 60 mL/min (>60); HEMOLYSIS 3; POTASSIUM 3.7 mEQ/L (3.4-4.9); SODIUM 140 mEQ/L (135-145)
[2016-11-17 10:22] LABS: BILIRUBIN,DIRECT 0.1 mg/dL (0.1-0.3); MAGNESIUM 1.9 mg/dL (1.7-2.5)
[2016-11-17 10:40] LABS: ANISOCYTOSIS 1+; BAND NEUTROPHILS % (MANUAL) 0 % (0-8); BASOPHILS % (MANUAL) 0 % (0-2); EOSINOPHILS % (MANUAL) 4 % (0-3); HYPOCHROMASIA 3+; LYMPHOCYTES % (MANUAL) 26 % (20-45); NEUTROPHILS % (MANUAL) 65 % (45-75); PLATELET ESTIMATE ADEQUATE; PLATELET MORPHOLOGY NORMAL; SPHEROCYTES 2+; TOTAL CELLS COUNTED 100
[2016-11-17 10:41] LABS: POLYCHROMASIA 1+
--- NOTE | 2016-11-17 11:28 | General Progress Note ---
Assessment/Plan Problem List: (1) Sepsis ICD Codes: A41.9 - Sepsis, unspecified organism SNOMED: 18796538 (2) Anemia due to acute blood loss ICD Codes: D62 - Acute posthemorrhagic anemia SNOMED: 148642010 (3) SVT (supraventricular tachycardia) ICD Codes: I47.1 - Supraventricular tachycardia SNOMED: 3843502 (4) Malignant neoplasm of right colon ICD Codes: C18.2 - Malignant neoplasm of ascending colon SNOMED: 717776884 Status: stable, progressing Assessment/Plan pain rx pos as tolerated. will d/w family transfusion. they agree. risk and benefits discussed. Subjective ROS Limited/Unobtainable: No Constitutional: Reports: malaise, weakness HEENT: Reports: ear pain Cardiovascular: Reports: no symptoms Respiratory: Reports: no symptoms Gastrointestinal/Abdominal: Reports: abdomen distended Genitourinary: Reports: no symptoms Neurologic/Psychiatric: Reports: no symptoms Endocrine: Reports: no symptoms Hematologic/Lymphatic: Reports: anemia Allergies: Coded Allergies: No Known Allergies (Unverified , 11/11/16) All Systems: reviewed and negative except above Subjective up in chair. finally had BM. no chest pain no sob. c/o slight left ear pain Objective Last 24 Hour Vital Signs Date Time Temp Pulse Resp B/P Pulse Ox O2 Delivery O2 Flow Rate FiO2 11/17/16 07:59 91 Room Air 21 11/17/16 07:59 Nasal Cannula 2.0 28 11/17/16 07:39 98.4 92 18 127/70 92 Room Air 11/17/16 04:00 98.1 85 18 113/62 97 Room Air 2.0 21 11/17/16 04:00 83 11/17/16 00:00 98.2 100 18 124/56 92 Room Air 11/17/16 00:00 91 11/16/16 20:00 97.4 92 20 134/59 94 Room Air 11/16/16 20:00 94 11/16/16 19:30 Room Air 21 11/16/16 19:30 97 Room Air 21 11/16/16 16:13 98.6 88 17 118/63 95 Room Air 11/16/16 16:00 83 11/16/16 12:02 98.4 103 19 106/41 98 Room Air 11/16/16 12:00 91 Intake and Output 11/16/16 11/17/16 18:59 06:59 Intake Total 2200.0 ml 337.5 ml Balance 2200.0 ml 337.5 ml Intake Oral 960 ml IV Total 1240.0 ml 337.5 ml # Voids 4 # Bowel Movements 1 Laboratory Tests 11/17/16 09:40: White Blood Count 13.5H, Red Blood Count 2.54L, Hemoglobin 7.5L, Hematocrit 23.0L, Mean Corpuscular Volume 91, Mean Corpuscular Hemoglobin 29.6, Mean Corpuscular Hemoglobin Concent 32.6, Red Cell Distribution Width 12.1, Platelet Count 314, Mean Platelet Volume 6.0L, Neutrophils (%) (Auto) , Lymphocytes (%) ( Auto) , Monocytes (%) (Auto) , Eosinophils (%) (Auto) , Basophils (%) (Auto) , Differential Total Cells Counted 100, Neutrophils % (Manual) 65, Lymphocytes % ( Manual) 26, Monocytes % (Manual) 5, Eosinophils % (Manual) 4H, Basophils % ( Manual) 0, Band Neutrophils 0, Platelet Estimate Adequate, Platelet Morphology Normal, Polychromasia 1+, Hypochromasia 3+, Anisocytosis 1+, Spherocytes 2+, Sodium Level 140, Potassium Level 3.7, Chloride Level 100, Carbon Dioxide Level 30, Anion Gap 10, Blood Urea Nitrogen 4L, Creatinine 0.6, Estimat Glomerular Filtration Rate > 60, Glucose Level 205H, Calcium Level 8.2L, Magnesium Level 1.9, Total Bilirubin 0.4, Direct Bilirubin 0.1, Aspartate Amino Transf (AST/SGOT ) 14, Alanine Aminotransferase (ALT/SGPT) 14, Alkaline Phosphatase 46, Total Protein 6.0L, Albumin 2.8L Height (Feet): 5 Height (Inches): 0.00 Weight (Pounds): 180 General Appearance: WD/WN, alert Neck: supple Cardiovascular: regular rhythm Respiratory/Chest: lungs clear Abdomen: normal bowel sounds, soft, distended Edema: no edema noted Arm (L), no edema noted Arm (R), no edema noted Leg (L), no edema noted Leg (R), no edema noted Pedal (L), no edema noted Pedal (R), no edema noted Generalized Objective General Appearance: WD/WN, alert Neck: supple Cardiovascular: regular rhythm Respiratory/Chest: lungs clear Abdomen: normal bowel sounds, soft, no mass, decreased bowel sounds Edema: no edema noted Arm (L), no edema noted Arm (R), no edema noted Leg (L), no edema noted Leg (R), no edema noted Pedal (L), no edema noted Pedal (R), no edema noted Generalized JACK LOPEZ November 17, 2016 11:28
[2016-11-17 11:31] VITALS: BP 114/47
--- NOTE | 2016-11-17 12:25 | Infectious Diseases Prog Note ---
Assessment/Plan Assessment/Plan antibiotics : zosyn A 1. leucocytosis improving 2. fever improved 3. colon cancer s/p right hemicolectomy 4. + blood cultures with coag neg staph likely contaminated P 1. continue zosyn 2. will follow up cultures Subjective Constitutional: Denies: chills, fever Respiratory: Denies: dry cough, shortness of breath Gastrointestinal/Abdominal: Denies: diarrhea, nausea, vomiting Musculoskeletal: Reports: pain - abdominal Allergies: Coded Allergies: No Known Allergies (Unverified , 11/11/16) Objective Vital Signs Last 24 Hour Vital Signs Date Time Temp Pulse Resp B/P Pulse Ox O2 Delivery O2 Flow Rate FiO2 11/17/16 11:31 97.7 79 18 114/47 97 Nasal Cannula 1.0 11/17/16 07:59 91 Room Air 21 11/17/16 07:59 Nasal Cannula 2.0 28 11/17/16 07:39 98.4 92 18 127/70 92 Room Air 11/17/16 04:00 98.1 85 18 113/62 97 Room Air 2.0 21 11/17/16 04:00 83 11/17/16 00:00 98.2 100 18 124/56 92 Room Air 11/17/16 00:00 91 11/16/16 20:00 97.4 92 20 134/59 94 Room Air 11/16/16 20:00 94 11/16/16 19:30 Room Air 21 11/16/16 19:30 97 Room Air 21 11/16/16 16:13 98.6 88 17 118/63 95 Room Air 11/16/16 16:00 83 Height (Feet): 5 Height (Inches): 0.00 Weight (Pounds): 180 Respiratory/Chest: lungs clear Cardiovascular: normal rate, regular rhythm, no gallop/murmur Abdomen: other - wound clean Extremities: no edema Laboratory Tests Test 11/17/16 09:40 White Blood Count 13.5 K/UL (4.8-10.8) H Red Blood Count 2.54 M/UL (4.20-5.40) L Hemoglobin 7.5 G/DL (12.0-16.0) L Hematocrit 23.0 % (37.0-47.0) L Mean Corpuscular Volume 91 FL (80-99) Mean Corpuscular Hemoglobin 29.6 PG (27.0-31.0) Mean Corpuscular Hemoglobin Concent 32.6 G/DL (32.0-36.0) Red Cell Distribution Width 12.1 % (11.6-14.8) Platelet Count 314 K/UL (150-450) Mean Platelet Volume 6.0 FL (6.5-10.1) L Neutrophils (%) (Auto) % (45.0-75.0) Lymphocytes (%) (Auto) % (20.0-45.0) Monocytes (%) (Auto) % (1.0-10.0) Eosinophils (%) (Auto) % (0.0-3.0) Basophils (%) (Auto) % (0.0-2.0) Differential Total Cells Counted 100 Neutrophils % (Manual) 65 % (45-75) Lymphocytes % (Manual) 26 % (20-45) Monocytes % (Manual) 5 % (1-10) Eosinophils % (Manual) 4 % (0-3) H Basophils % (Manual) 0 % (0-2) Band Neutrophils 0 % (0-8) Platelet Estimate Adequate Platelet Morphology Normal Polychromasia 1+ Hypochromasia 3+ Anisocytosis 1+ Spherocytes 2+ Sodium Level 140 mEQ/L (135-145) Potassium Level 3.7 mEQ/L (3.4-4.9) Chloride Level 100 mEQ/L (98-107) Carbon Dioxide Level 30 mEQ/L (20-30) Anion Gap 10 (5-15) Blood Urea Nitrogen 4 mg/dL (7-23) L Creatinine 0.6 mg/dL (0.5-0.9) Estimat Glomerular Filtration Rate > 60 mL/min (>60) Glucose Level 205 mg/dL (74-106) H Calcium Level 8.2 mg/dL (8.6-10.2) L Magnesium Level 1.9 mg/dL (1.7-2.5) Total Bilirubin 0.4 mg/dL (0.0-1.2) Direct Bilirubin 0.1 mg/dL (0.1-0.3) Aspartate Amino Transf (AST/SGOT) 14 U/L (5-40) Alanine Aminotransferase (ALT/SGPT) 14 U/L (3-33) Alkaline Phosphatase 46 U/L (35-104) Total Protein 6.0 g/dL (6.6-8.7) L Albumin 2.8 g/dL (3.5-5.2) L SKYLER ESPINOZA November 17, 2016 12:25
[2016-11-17] MEDS ORDERED: Carbamide Peroxide 6.5% Ot Sol 15ML BOTH EARS SCH (12:30)
[2016-11-17] MEDS: Norco 7.5mg/325mg tab ORAL PRN (13:21)
[2016-11-17] MEDS ORDERED: Hydromorphone 0.5mg/0.5ml inj IVP PRN (14:00)
[2016-11-17] MEDS: Carbamide Peroxide 6.5% Ot Sol 15ML BOTH EARS SCH ×2 (14:04→21:00)
[2016-11-17] MEDS ORDERED: HYDROmorphone 1mg/ml Carpuject IVP PRN (15:30)
[2016-11-17] MEDS ORDERED: Norco 7.5mg/325mg tab ORAL PRN (15:30)
[2016-11-17] MEDS ORDERED: Levalbuterol Inh UD 1.25mg/0.5ml HHN PRN (15:45)
[2016-11-17 16:04] VITALS: BP 124/62
--- NOTE | 2016-11-17 16:55 | General Progress Note ---
Progress Note Progress Note Surgery: patient seen and examined at bedside. no acute events. doing well. abdominal incisional pain as anticipated. does not like the hospital food. +flatus, +BM tolerating oral diet. exam benign abdomen soft, incisional tenderness, no distended, +bowel sounds, wounds c/d/i leukocytosis improved. labs improved. anemia Plan: advance to soft diet ambulate and oob d/c planning for tomorrow or . Rolando Mc November 17, 2016 16:55
[2016-11-17 20:00] VITALS: BP 109/59
[2016-11-18] VITALS: BP 141/71
[2016-11-18] MEDS: Piperacillin/Tazobactam 3.375 GM in D5W 110 ML IVPB SCH (05:03)
[2016-11-18] MEDS: Heparin 5000 units/ml inj SUBQ SCH (05:31)
[2016-11-18] MEDS: NovoLOG Insulin Flexpen SUBQ SCH ×2 (06:07→12:01)
[2016-11-18 06:14] LABS: EOSINOPHILS % (AUTO) 2.7 % (0.0-3.0); LYMPHOCYTES % (AUTO) 21.8 % (20.0-45.0); MEAN CORPUSCULAR HEMOGLOBIN 29.8 PG (27.0-31.0); MEAN CORPUSCULAR HGB CONC 33.1 G/DL (32.0-36.0); MEAN CORPUSCULAR VOLUME 90 FL (80-99); MEAN PLATELET VOLUME 6.5 FL (6.5-10.1); MONOCYTES % (AUTO) 7.3 % (1.0-10.0); NEUTROPHILS % (AUTO) 67.1 % (45.0-75.0); PLATELET COUNT 362 K/UL (150-450); RED BLOOD COUNT 3.28 M/UL (4.20-5.40); RED CELL DISTRIBUTION WIDTH 12.3 % (11.6-14.8); WHITE BLOOD COUNT 13.8 K/UL (4.8-10.8)
[2016-11-18 06:30] LABS: ALANINE AMINOTRANSFERASE 13 U/L (3-33); ANION GAP 12 (5-15); ASPARTATE AMINO TRANSFERASE 14 U/L (5-40); CALCIUM 8.6 mg/dL (8.6-10.2); CARBON DIOXIDE 30 mEQ/L (20-30); CHLORIDE 96 mEQ/L (98-107); CREATININE 0.6 mg/dL (0.5-0.9); GLOMERULAR FILTRATION RATE > 60 mL/min (>60); HEMOLYSIS 0; POTASSIUM 3.6 mEQ/L (3.4-4.9); SODIUM 138 mEQ/L (135-145); TOTAL PROTEIN 6.2 g/dL (6.6-8.7)
[2016-11-18 08:00] VITALS: BP 152/62
[2016-11-18] MEDS: Norco 7.5mg/325mg tab ORAL PRN (08:12)
[2016-11-18] MEDS: Carbamide Peroxide 6.5% Ot Sol 15ML BOTH EARS SCH (08:14)
--- NOTE | 2016-11-18 08:42 | General Progress Note ---
Assessment/Plan Problem List: (1) Sepsis ICD Codes: A41.9 - Sepsis, unspecified organism SNOMED: 89204484 (2) Anemia due to acute blood loss ICD Codes: D62 - Acute posthemorrhagic anemia SNOMED: 294542046 (3) SVT (supraventricular tachycardia) ICD Codes: I47.1 - Supraventricular tachycardia SNOMED: 6003224 (4) Malignant neoplasm of right colon ICD Codes: C18.2 - Malignant neoplasm of ascending colon SNOMED: 246396429 Status: stable, progressing Assessment/Plan pain rx pos as tolerated. monitor labs mobilize pt/ot Subjective ROS Limited/Unobtainable: No Constitutional: Reports: malaise, weakness HEENT: Reports: no symptoms Cardiovascular: Reports: no symptoms Respiratory: Reports: no symptoms Gastrointestinal/Abdominal: Reports: abdominal pain Genitourinary: Reports: no symptoms Neurologic/Psychiatric: Reports: no symptoms Endocrine: Reports: no symptoms Hematologic/Lymphatic: Reports: anemia Allergies: Coded Allergies: No Known Allergies (Unverified , 11/11/16) All Systems: reviewed and negative except above Subjective feels fine. mild abd pain. had bm yesterday. no bleeding noted. s/p 1 units prbcs Objective Last 24 Hour Vital Signs Date Time Temp Pulse Resp B/P Pulse Ox O2 Delivery O2 Flow Rate FiO2 11/18/16 08:05 94 Room Air 21 11/18/16 08:05 Room Air 21 11/18/16 02:34 99.1 11/18/16 00:00 99.1 93 18 141/71 95 Room Air 11/17/16 20:29 Room Air 21 11/17/16 20:29 95 Room Air 21 11/17/16 20:00 97.5 86 18 109/59 93 Room Air 11/17/16 16:04 98.6 92 21 124/62 97 Room Air 11/17/16 11:31 97.7 79 18 114/47 97 Nasal Cannula 1.0 Intake and Output 11/17/16 11/18/16 19:00 07:00 Intake Total 790.0 ml 500 ml Balance 790.0 ml 500 ml Intake Oral 580 ml IV Total 210.0 ml 500 ml # Voids 4 # Bowel Movements 2 Laboratory Tests 11/17/16 09:40: White Blood Count 13.5H, Red Blood Count 2.54L, Hemoglobin 7.5L, Hematocrit 23.0L, Mean Corpuscular Volume 91, Mean Corpuscular Hemoglobin 29.6, Mean Corpuscular Hemoglobin Concent 32.6, Red Cell Distribution Width 12.1, Platelet Count 314, Mean Platelet Volume 6.0L, Neutrophils (%) (Auto) , Lymphocytes (%) ( Auto) , Monocytes (%) (Auto) , Eosinophils (%) (Auto) , Basophils (%) (Auto) , Differential Total Cells Counted 100, Neutrophils % (Manual) 65, Lymphocytes % ( Manual) 26, Monocytes % (Manual) 5, Eosinophils % (Manual) 4H, Basophils % ( Manual) 0, Band Neutrophils 0, Platelet Estimate Adequate, Platelet Morphology Normal, Polychromasia 1+, Hypochromasia 3+, Anisocytosis 1+, Spherocytes 2+, Sodium Level 140, Potassium Level 3.7, Chloride Level 100, Carbon Dioxide Level 30, Anion Gap 10, Blood Urea Nitrogen 4L, Creatinine 0.6, Estimat Glomerular Filtration Rate > 60, Glucose Level 205H, Calcium Level 8.2L, Magnesium Level 1.9, Total Bilirubin 0.4, Direct Bilirubin 0.1, Aspartate Amino Transf (AST/SGOT ) 14, Alanine Aminotransferase (ALT/SGPT) 14, Alkaline Phosphatase 46, Total Protein 6.0L, Albumin 2.8L 11/18/16 05:20: White Blood Count 13.8H, Red Blood Count 3.28L, Hemoglobin 9.8#L, Hematocrit 29.5L, Mean Corpuscular Volume 90, Mean Corpuscular Hemoglobin 29.8, Mean Corpuscular Hemoglobin Concent 33.1, Red Cell Distribution Width 12.3, Platelet Count 362, Mean Platelet Volume 6.5, Neutrophils (%) (Auto) 67.1, Lymphocytes (% ) (Auto) 21.8, Monocytes (%) (Auto) 7.3, Eosinophils (%) (Auto) 2.7, Basophils ( %) (Auto) 1.0, Sodium Level 138, Potassium Level 3.6, Chloride Level 96L, Carbon Dioxide Level 30, Anion Gap 12, Blood Urea Nitrogen 4L, Creatinine 0.6, Estimat Glomerular Filtration Rate > 60, Glucose Level 178H, Calcium Level 8.6, Total Bilirubin 0.7, Aspartate Amino Transf (AST/SGOT) 14, Alanine Aminotransferase (ALT/SGPT) 13, Alkaline Phosphatase 61, Total Protein 6.2L, Albumin 3.1L, Globulin 3.1, Albumin/Globulin Ratio 1.0 Height (Feet): 5 Height (Inches): 0.00 Weight (Pounds): 180 Objective General Appearance: WD/WN, alert Neck: supple Cardiovascular: regular rhythm Respiratory/Chest: lungs clear Abdomen: normal bowel sounds, soft, no mass, decreased bowel sounds Edema: no edema noted Arm (L), no edema noted Arm (R), no edema noted Leg (L), no edema noted Leg (R), no edema noted Pedal (L), no edema noted Pedal (R), no edema noted Generalized JACK LOPEZ November 18, 2016 08:41
[2016-11-18] MEDS ORDERED: Pantoprazole Inj IVP SCH (09:00)
[2016-11-18 09:21] VITALS: BP 152/62
[2016-11-18 09:25] VITALS: BP 152/62
--- NOTE | 2016-11-18 10:59 | General Surgery Progress Note ---
General Surgery-Progress Note Subjective Procedure Performed laparoscopic right hemicolectomy Chief Complaint: pain, decreasing, havingBMs Symptoms: improved Additional Comments ambulating some with help and walker Objective Last 24 Hour Vital Signs Date Time Temp Pulse Resp B/P Pulse Ox O2 Delivery O2 Flow Rate FiO2 11/18/16 09:25 98.1 87 14 152/62 96 Room Air 11/18/16 09:21 98.1 87 14 152/62 96 Room Air 11/18/16 08:05 94 Room Air 21 11/18/16 08:05 Room Air 21 11/18/16 08:00 98.1 87 14 152/62 96 Room Air 11/18/16 02:34 99.1 11/18/16 00:00 99.1 93 18 141/71 95 Room Air 11/17/16 20:29 Room Air 21 11/17/16 20:29 95 Room Air 21 11/17/16 20:00 97.5 86 18 109/59 93 Room Air 11/17/16 16:04 98.6 92 21 124/62 97 Room Air 11/17/16 11:31 97.7 79 18 114/47 97 Nasal Cannula 1.0 I&O Intake and Output 11/17/16 11/18/16 19:00 07:00 Intake Total 790.0 ml 627.5 ml Balance 790.0 ml 627.5 ml Intake Oral 580 ml IV Total 210.0 ml 627.5 ml # Voids 4 # Bowel Movements 2 Wound: clean - deb removed, wounds steristripped Drains: none Cardiovascular: RSR Respiratory: clear Abdomen: soft Extremities: no edema Laboratory Tests Test 11/18/16 05:20 White Blood Count 13.8 K/UL (4.8-10.8) H Red Blood Count 3.28 M/UL (4.20-5.40) L Hemoglobin 9.8 G/DL (12.0-16.0) #L Hematocrit 29.5 % (37.0-47.0) L Mean Corpuscular Volume 90 FL (80-99) Mean Corpuscular Hemoglobin 29.8 PG (27.0-31.0) Mean Corpuscular Hemoglobin Concent 33.1 G/DL (32.0-36.0) Red Cell Distribution Width 12.3 % (11.6-14.8) Platelet Count 362 K/UL (150-450) Mean Platelet Volume 6.5 FL (6.5-10.1) Neutrophils (%) (Auto) 67.1 % (45.0-75.0) Lymphocytes (%) (Auto) 21.8 % (20.0-45.0) Monocytes (%) (Auto) 7.3 % (1.0-10.0) Eosinophils (%) (Auto) 2.7 % (0.0-3.0) Basophils (%) (Auto) 1.0 % (0.0-2.0) Sodium Level 138 mEQ/L (135-145) Potassium Level 3.6 mEQ/L (3.4-4.9) Chloride Level 96 mEQ/L (98-107) L Carbon Dioxide Level 30 mEQ/L (20-30) Anion Gap 12 (5-15) Blood Urea Nitrogen 4 mg/dL (7-23) L Creatinine 0.6 mg/dL (0.5-0.9) Estimat Glomerular Filtration Rate > 60 mL/min (>60) Glucose Level 178 mg/dL (74-106) H Calcium Level 8.6 mg/dL (8.6-10.2) Total Bilirubin 0.7 mg/dL (0.0-1.2) Aspartate Amino Transf (AST/SGOT) 14 U/L (5-40) Alanine Aminotransferase (ALT/SGPT) 13 U/L (3-33) Alkaline Phosphatase 61 U/L (35-104) Total Protein 6.2 g/dL (6.6-8.7) L Albumin 3.1 g/dL (3.5-5.2) L Globulin 3.1 g/dL Albumin/Globulin Ratio 1.0 (1.0-2.7) Additional Comments Pathology: T2 NxMx (tumor in muscularis with lymphoid reaction, lymph nodes with some mucin ? mets ?) Assessment Post-op Diagnosis Stable s/p laparoscopic right hemicolectomy GI function back Plan Additional Comments Home today on FeSO4, Tylenol #3, [id number] # 10 F/U Wednesday [facility] ALEK WORTHY November 18, 2016 10:59
[2016-11-18] MEDS: 1/2NS w/KCl 20mEq 1000ml 1,000 ML IV SCH (11:00)
[2016-11-18] MEDS ORDERED: ACETAMINOPHEN-1 EAC1 ORAL (11:22)
[2016-11-18] MEDS ORDERED: CIPRO500 MG/51 PO (11:22)
[2016-11-18] MEDS ORDERED: FERROUS SULFAT325 MG ORAL (11:25)
[2016-11-18 11:47] VITALS: BP 135/75
--- NOTE | 2016-11-18 12:06 | Infectious Diseases Prog Note ---
Assessment/Plan Assessment/Plan antibiotics : zosyn A 1. leucocytosis improving 2. fever improved 3. colon cancer s/p right hemicolectomy 4. + blood cultures with coag neg staph likely contaminated P 1. continue zosyn 3 more days 2. will follow up cultures Subjective Constitutional: Denies: chills, fever Respiratory: Denies: dry cough, shortness of breath Gastrointestinal/Abdominal: Reports: diarrhea, Denies: nausea, vomiting Musculoskeletal: Reports: pain - abdominal Allergies: Coded Allergies: No Known Allergies (Unverified , 11/11/16) Objective Vital Signs Last 24 Hour Vital Signs Date Time Temp Pulse Resp B/P Pulse Ox O2 Delivery O2 Flow Rate FiO2 11/18/16 11:47 97.3 84 13 135/75 96 Room Air 11/18/16 09:25 98.1 87 14 152/62 96 Room Air 11/18/16 09:21 98.1 87 14 152/62 96 Room Air 11/18/16 09:11 98.1 11/18/16 08:05 94 Room Air 21 11/18/16 08:05 Room Air 21 11/18/16 08:00 98.1 87 14 152/62 96 Room Air 11/18/16 02:34 99.1 11/18/16 00:00 99.1 93 18 141/71 95 Room Air 11/17/16 20:29 Room Air 21 11/17/16 20:29 95 Room Air 21 11/17/16 20:00 97.5 86 18 109/59 93 Room Air 11/17/16 16:04 98.6 92 21 124/62 97 Room Air Height (Feet): 5 Height (Inches): 0.00 Weight (Pounds): 180 Respiratory/Chest: lungs clear Cardiovascular: normal rate, regular rhythm, no gallop/murmur Abdomen: other - wounds clean Extremities: no edema Laboratory Tests Test 11/18/16 05:20 White Blood Count 13.8 K/UL (4.8-10.8) H Red Blood Count 3.28 M/UL (4.20-5.40) L Hemoglobin 9.8 G/DL (12.0-16.0) #L Hematocrit 29.5 % (37.0-47.0) L Mean Corpuscular Volume 90 FL (80-99) Mean Corpuscular Hemoglobin 29.8 PG (27.0-31.0) Mean Corpuscular Hemoglobin Concent 33.1 G/DL (32.0-36.0) Red Cell Distribution Width 12.3 % (11.6-14.8) Platelet Count 362 K/UL (150-450) Mean Platelet Volume 6.5 FL (6.5-10.1) Neutrophils (%) (Auto) 67.1 % (45.0-75.0) Lymphocytes (%) (Auto) 21.8 % (20.0-45.0) Monocytes (%) (Auto) 7.3 % (1.0-10.0) Eosinophils (%) (Auto) 2.7 % (0.0-3.0) Basophils (%) (Auto) 1.0 % (0.0-2.0) Sodium Level 138 mEQ/L (135-145) Potassium Level 3.6 mEQ/L (3.4-4.9) Chloride Level 96 mEQ/L (98-107) L Carbon Dioxide Level 30 mEQ/L (20-30) Anion Gap 12 (5-15) Blood Urea Nitrogen 4 mg/dL (7-23) L Creatinine 0.6 mg/dL (0.5-0.9) Estimat Glomerular Filtration Rate > 60 mL/min (>60) Glucose Level 178 mg/dL (74-106) H Calcium Level 8.6 mg/dL (8.6-10.2) Total Bilirubin 0.7 mg/dL (0.0-1.2) Aspartate Amino Transf (AST/SGOT) 14 U/L (5-40) Alanine Aminotransferase (ALT/SGPT) 13 U/L (3-33) Alkaline Phosphatase 61 U/L (35-104) Total Protein 6.2 g/dL (6.6-8.7) L Albumin 3.1 g/dL (3.5-5.2) L Globulin 3.1 g/dL Albumin/Globulin Ratio 1.0 (1.0-2.7) SKYLER ESPINOZA November 18, 2016 12:06
[2016-11-18] MEDS ORDERED: Tubing IV Secondary IV ONE (12:34)
[2016-11-18] MEDS ORDERED: NS 275ml ONE (12:34)
[2016-11-18] MEDS ORDERED: Tubing Blood Filter IV ONE (12:34)
--- NOTE | 2016-11-19 01:08 | Progress Note ---
DATE: 11/17/2016 CARDIOLOGY PROGRESS NOTE SUBJECTIVE: The patient is more alert. Abdominal pain has decreased. She is tolerating a diet and she is passing gas. OBJECTIVE: VITAL SIGNS: Afebrile. Oxygen saturation on room air 91% to 92%. Blood pressure 127/70 and pulse 92. NECK: Supple. LUNGS: Clear. ABDOMEN: Soft. Surgical site is clean. EXTREMITIES: No edema. LABORATORY DATA: White count 13.5 and hemoglobin 7.5. IMPRESSION: 1. Status post hemicolectomy. 2. Paroxysmal supraventricular tachycardia. 3. Secondary sinus tachycardia. 4. Postoperative anemia. 5. Atelectasis. PLAN: 1. Packed red blood cell transfusion. 2. Continue antibiotics per Infectious Disease golf tournament consultant. 3. Respiratory hygiene. 4. DVT prophylaxis. Miguel Pelletier M.D. DR: JOSE RAUL JOB#: [id number] CC:
--- NOTE | 2016-11-19 02:28 | Progress Note ---
DATE: 11/18/2016 SUBJECTIVE: The patient is status post packed red blood cell transfusion. She feels better. No fever. OBJECTIVE: VITAL SIGNS: Blood pressure 135/75, pulse 84, respiratory rate 13, and oxygen saturation on room air is 96%. LUNGS: Clear. CARDIAC: Regular. ABDOMEN: Soft. EXTREMITIES: No edema. Surgical site is clean and dry. LABORATORY DATA: Hemoglobin 9.8. White count 13.8. Potassium 3.6, BUN 4, and creatinine 0.6. Albumin 3.1. IMPRESSION: 1. Status post hemicolectomy for colon cancer. 2. Postoperative sepsis. 3. Postoperative anemia, status post transfusion. 4. Atelectasis, improved. 5. [id number] protein-calorie malnutrition. 6. Secondary sinus tachycardia, resolved. 7. Paroxysmal supraventricular tachycardia without recurrence. 8. Hypomagnesemia, corrected. PLAN: The patient is stable for outpatient followup. No additional cardiovascular therapy presently planned. Miguel Pelletier M.D. DR: Russell JOB#: [id number] CC:
--- NOTE | 2016-11-19 16:44 | Discharge Summary ---
Discharge Summary Hospital Course Date of Admission Nov 12, 2016 at 05:51 Date of Discharge November 18, 2016 at 12:35 Admitting Diagnosis HPI Mai Luque is a 66 year old female who was admitted on Nov 12, 2016 at 05:51 for Rt Colon Cancer Hospital Course [id number] Discharge Discharge Disposition Patient was discharged to Home (01) Discharge Diagnoses: Carmella Vides NP November 19, 2016 16:44
--- NOTE | 2016-11-20 03:38 | Discharge Summary 2 SIG ---
DATE OF ADMISSION: 11/12/2016 DATE OF DISCHARGE: 11/18/2016 CONSULTANTS: 1. Pablo Charles M.D. 2. Miguel Pelletier M.D. 3. Jack Wan M.D. BRIEF HOSPITAL COURSE: The patient is a very pleasant, 6, para 6, 66-year-old diabetic obese female with history of arthritis and newly diagnosed ascending colon infiltrating adenocarcinoma. She had undergone a colonoscopy and was found to have an infiltrating adenocarcinoma of the ascending colon near the hepatic flexure and evidently the cecum. CAT scan of the abdomen revealed normal findings except fatty liver changes and evidence of prior cholecystectomy. On 11/12/2016, the patient underwent laparoscopic right hemicolectomy with extensive lysis of adhesions. Postoperatively, she was given pain management and was continued on NPO awaiting return of bowel function. The abdomen was soft and nondistended. Wound dressings were clean, dry, and intact. She was given IV fluids and advised to do incentive spirometry 10 times while awake and was given SCDs for DVT prophylaxis. She had an episode of fever and was given IV vancomycin and Zosyn and was followed by Infectious Disease specialist. Blood culture showed coagulase-negative Staphylococcus, which is likely contaminant. Vancomycin was discontinued and was given Zosyn. The patient eventually defervesced. She had an episode of acute anemia and was given one unit packed RBC transfusion. Diet was slowly advanced. She had been passing gas and loose stools. Anemia improved. The patient was encouraged ambulation and was eventually discharged home. FINAL DIAGNOSES: 1. Status post laparoscopic right hemicolectomy with extensive lysis of adhesions. 2. Postoperative sepsis. 3. Postoperative anemia, status post transfusion. 4. Atelectasis. 5. Mild to moderate protein-calorie malnutrition. 6. Secondary sinus tachycardia, resolved. 7. Hypomagnesemia, corrected. 8. Paroxysmal supraventricular tachycardia without recurrence. Corey Harris M.D. I have been assigned to dictate discharge summary on this account and I was not involved in the patient's management. Carmella Vides N.P. DR: JUAN JOSE JOB#: [id number] CC: [email or web address]
== END 2016-11-18 12:35 | disposition home or self-care (01) | DRG 329 ==
LOC: SDSOVERFLO 05:51 → 3E 15:41 → 2W 11-13 21:59 → 2E 11-13 23:30 → 4W 11-17 12:03
PROC: 0DNS4ZZ (ICD-10-PCS; principal; 2016-11-12 07:30)
PROC: 0DNT4ZZ (ICD-10-PCS; principal; 2016-11-12 07:30)
PROC: 0DTF4ZZ Resection of Right Large Intestine, Percutaneous Endoscopic Approach (ICD-10-PCS; principal; 2016-11-12 07:30)
DX: C18.2 Malignant neoplasm of ascending colon (principal); A41.9 Sepsis, unspecified organism; E44.0 Moderate protein-calorie malnutrition; E11.65 Type 2 diabetes mellitus with hyperglycemia; E66.9 Obesity, unspecified; I47.1 Supraventricular tachycardia; E83.42 Hypomagnesemia; J98.11 Atelectasis; Z68.35 Body mass index [BMI] 35.0-35.9, adult; D64.9 Anemia, unspecified; K66.0 Peritoneal adhesions (postprocedural) (postinfection)
CPT/HCPCS: 36415; 71010; 74020; 80048; 80053; 80076; 81001; 82330; 82962; 83735; 84100; 85007; 85025; 86850; 86900; 86901; 86920; 87040; 87081; 87086; 87181; 93005; 94003; 94150; 94640; 94664; 94760; J1815; J2250; J2405; J7620